=== PATIENT | male | born 1940 | race Caucasian/White ===

== ENCOUNTER → 2017-01-24 | Outpatient (CLI) | payer OTHER ==
[2017-01-24 15:20] LABS: HEMATOCRIT 43.3 % (42-52); MEAN CELL VOLUME 87.5 fL (80-100); MEAN CORPUSCULAR HEMOGLOBIN 27.7 pg (25-34); MEAN CORPUSCULAR HGB CONC 31.6 g/dl (32-36); MEAN PLATELET VOLUME 11.4 fL (7.4-10.4); PLATELET COUNT 207 K/uL (130-400); RED BLOOD COUNT 4.95 M/uL (4.7-6.1); WHITE BLOOD COUNT 4.67 K/uL (4.8-10.8)
[2017-01-24 15:22] LABS: URINE APPEARANCE CLEAR (CLEAR); URINE BILIRUBIN NEG (NEG); URINE COLOR YELLOW; URINE NITRITE NEG (NEG); URINE SPECIFIC GRAVITY 1.023 (1.000-1.030); UROBILINOGEN NEG (NEG)
[2017-01-24 15:27] LABS: MANUAL MICROSCOPIC REQUIRED? NO; REVIEW REQ? NO
[2017-01-24 15:36] LABS: URINE PROTIEN/CREAT RATIO 0.1 (0-0.2); URINE TOTAL PROTEIN 9.9 mg/dl (0-11.9)
[2017-01-24 15:42] LABS: ALT/SGPT 27 U/L (12-78); BLOOD UREA NITROGEN 57 mg/dl (7-18); BUN/CREATININE RATIO 22.9 (10-20); CALCIUM 9.7 mg/dl (8.5-10.1); CARBON DIOXIDE 25 mmol/L (21-32); CHLORIDE 109 mmol/L (98-107); GLUCOSE 110 mg/dl (70-99); POTASSIUM 4.4 mmol/L (3.5-5.1); SODIUM 141 mmol/L (136-145)
[2017-01-24 15:45] LABS: ALKALINE PHOSPHATASE 57 U/L (45-117); AST/SGOT 17 U/L (15-37)
== END | disposition home or self-care (01) ==
LOC: C.LAB1850 12:32
PROVIDERS: ATTEND Internal Medicine Nephrology
DX: I10 Essential (primary) hypertension (principal); R80.9 Proteinuria, unspecified; E11.9 Type 2 diabetes mellitus without complications; E55.9 Vitamin D deficiency, unspecified; N18.3 Chronic kidney disease, stage 3 (moderate)

== ENCOUNTER → 2017-07-29 | Outpatient (CLI) | payer OTHER ==
[2017-07-29 14:42] LABS: HEMATOCRIT 41.7 % (42-52); HEMOGLOBIN 13.5 g/dL (14.0-18.0); MEAN CELL VOLUME 90.7 fL (80-100); MEAN CORPUSCULAR HEMOGLOBIN 29.3 pg (25-34); MEAN CORPUSCULAR HGB CONC 32.4 g/dl (32-36); MEAN PLATELET VOLUME 11.3 fL (7.4-10.4); PLATELET COUNT 212 K/uL (130-400); RED CELL DISTRIBUTION WIDTH CV 14.3 % (11.5-14.5); WHITE BLOOD COUNT 5.86 K/uL (4.8-10.8)
[2017-07-29 14:51] LABS: ALBUMIN 3.7 gm/dl (3.4-5.0); BLOOD UREA NITROGEN 45 mg/dl (7-18); CALCIUM 9.5 mg/dl (8.5-10.1); CARBON DIOXIDE 25 mmol/L (21-32); CREATININE 2.49 mg/dl (0.60-1.40); GLUCOSE 74 mg/dl (70-99); POTASSIUM 4.5 mmol/L (3.5-5.1); SODIUM 141 mmol/L (136-145)
[2017-07-29 14:52] LABS: PHOSPHORUS 3.2 mg/dl (2.5-4.9)
== END | disposition home or self-care (01) ==
LOC: C.LAB1850 12:57
PROVIDERS: ATTEND Internal Medicine Nephrology
DX: Q61.2 Polycystic kidney, adult type (principal); I10 Essential (primary) hypertension; N18.3 Chronic kidney disease, stage 3 (moderate); R31.29 Other microscopic hematuria; R80.9 Proteinuria, unspecified; E55.9 Vitamin D deficiency, unspecified

== ENCOUNTER → 2018-02-01 | Outpatient (CLI) | payer OTHER ==
[2018-02-01 14:51] LABS: HEMATOCRIT 41.6 % (42-52); HEMOGLOBIN 13.4 g/dL (14.0-18.0); MEAN CELL VOLUME 89.1 fL (80-100); MEAN CORPUSCULAR HEMOGLOBIN 28.7 pg (25-34); MEAN CORPUSCULAR HGB CONC 32.2 g/dl (32-36); MEAN PLATELET VOLUME 11.3 fL (7.4-10.4); PLATELET COUNT 202 K/uL (130-400); RED CELL DISTRIBUTION WIDTH CV 14.6 % (11.5-14.5); RED CELL DISTRIBUTION WIDTH SD 47.1 fL (36.4-46.3); WHITE BLOOD COUNT 4.62 K/uL (4.8-10.8)
[2018-02-01 15:39] LABS: ALBUMIN 3.7 gm/dl (3.4-5.0); ALKALINE PHOSPHATASE 60 U/L (45-117); ALT/SGPT 20 U/L (12-78); AST/SGOT 11 U/L (15-37); BLOOD UREA NITROGEN 53 mg/dl (7-18); CALCIUM 8.8 mg/dl (8.5-10.1); CARBON DIOXIDE 23 mmol/L (21-32); GLUCOSE 113 mg/dl (70-99); POTASSIUM 4.4 mmol/L (3.5-5.1); SODIUM 139 mmol/L (136-145); TOTAL PROTEIN 7.5 gm/dl (6.4-8.2)
== END | disposition home or self-care (01) ==
LOC: C.LAB1850 13:10
PROVIDERS: ATTEND Internal Medicine Nephrology
DX: E55.9 Vitamin D deficiency, unspecified (principal)

== ENCOUNTER 2023-09-29 14:19 | Inpatient (IN) ==
[2023-09-29 15:38] LABS: Basophils # (auto) 0.02 K/uL (0.00-0.20); Basophils % (auto) 0.2 %; Eosinophils # (auto) 0.01 K/uL (0.00-0.50); Eosinophils % (auto) 0.1 %; Hematocrit (blood only) 34.2 % (42.0-52.0); Hemoglobin 11.2 g/dl (14.0-18.0); Immature Granulocytes # (auto) 0.15 K/uL (0.01-0.20); Immature Granulocytes % (auto) 1.7 %; Lymphocytes # (auto) 0.43 K/uL (1.20-3.40); Lymphocytes % (auto) 4.9 %; Mean Corpuscular Hemoglobin 28.6 pg (25.0-34.0); Mean Corpuscular Hgb Conc 32.7 g/dL (32.0-36.0); Mean Corpuscular Volume 87.2 fL (80.0-100.0); Mean Platelet Volume 11.6 fL (9.4-12.4); Monocytes # (auto) 0.64 K/uL (0.11-0.59); Monocytes % (auto) 7.3 %; Neutrophils # (auto) 7.51 K/uL (1.40-6.50); Neutrophils % (auto) 85.8 %; Platelet Count 148 K/uL (130-400); RDW Coefficient of Variation 14.4 % (11.5-14.5); RDW Standard Deviation 46.4 fL (36.4-46.3); Red Blood Count 3.92 M/uL (4.70-6.10); White Blood Count 8.76 K/ul (4.8-10.8)
--- NOTE | 2023-09-29 15:43 | XRay Report ---
XR chest 1V not portable CLINICAL HISTORY: Sepsis TECHNIQUE: Single frontal radiograph of the chest was obtained. Comparison: None available at the time of this dictation. FINDINGS: No lines and tubes are seen. Cardiomegaly is noted. The aortic arch is calcified. Prominence and ceph alization of the vasculature is seen. No evidence of pleural effusion or pneumothorax. IMPRESSION: No acute chest disease. ACT 112: Negative or not required by law. Electronically signed by: Steven Acuna M.D. 09/29/2023 3:42 PM
[2023-09-29 15:59] LABS: Albumin Globulin Ratio 1.1 (0.9-2); Albumin Level 3.6 gm/dl (3.4-5.0); BUN Creatinine Ratio 15.5 (10-20); Bilirubin,Total 1.4 mg/dl (0.2-1.0); Calcium 8.9 mg/dl (8.6-10.3); Creatinine Clr Calc Pharmacy 17.1 ml/min; Est GFR (African American) 12.3 ml/min; Est GFR (Non-African American) 10.6 ml/min; Globulin 3.4 gm/dl (2.5-4.0); Magnesium 1.8 mg/dl (1.7-2.4); Potassium 4.3 mmol/L (3.5-5.1)
[2023-09-29 16:01] LABS: Troponin I High Sensitivity 232.5 pg/ml (0-20)
[2023-09-29 16:06] LABS: INR 1.3 (0.9-1.1); Partial Thromboplastin Ratio 1.2; Partial Thromboplastin Time 34 Seconds (21-31); Prothrombin Time 13.6 Seconds (9.0-12.0)
--- NOTE | 2023-09-29 16:23 | Emergency Department Note ---
History of Present Illness General Chief complaint: Urinary Symptoms Stated complaint: NO SLEEP, FREQUENT URINATION Time Seen by Provider: 09/29/23 15:58 History of Present Illness Provider Complaint: + dysuria Onset (ago): day(s) 2 Duration: + constant Quality: + burning Relieved By: + none Exacerbated By: + urination Associated symptoms: + fever/chills, + shortness of breath and + weakness Other Symptoms: no urinary retention or no blood in urine Home Medications Medication Instructions Recorded Confirmed Type amlodipine 10 mg tablet 10 mg PO DAILY 01/24/19 09/29/23 History aspirin 81 mg tablet 81 mg PO DAILY 01/24/19 09/29/23 History coenzyme Q10 100 mg capsule (Co 100 mg PO DAILY 01/24/19 09/29/23 History Q-10) ezetimibe 10 mg tablet 10 mg PO DAILY 01/24/19 09/29/23 History fenofibrate micronized 134 mg 134 mg PO DAILY 01/24/19 09/29/23 History capsule multivitamin (Daily Multi-Vitamin 1 tab PO DAILY 01/24/19 09/29/23 History tablet) pravastatin 20 mg tablet 20 mg PO DAILY 01/24/19 09/29/23 History terazosin 10 mg capsule 10 mg PO DAILY 01/24/19 09/29/23 History apixaban 2.5 mg tablet (Eliquis) 2.5 mg PO BID #60 tabs 01/29/19 09/29/23 Rx metoprolol tartrate 25 mg tablet 25 mg PO DAILY #30 tabs 12/25/19 09/29/23 Rx lisinopril 40 mg tablet 40 mg PO DAILY 07/06/22 09/29/23 History ergocalciferol (vitamin D2) 1,250 50,000 unit PO .COMPLEX #20 caps 09/20/22 09/29/23 Rx mcg (50,000 unit) capsule allopurinol 100 mg tablet 100 mg PO Q4D 06/07/23 09/29/23 History furosemide 40 mg tablet 40 mg PO DAILY #90 tabs 07/19/23 09/29/23 Rx colchicine 0.6 mg tablet 0.6 mg PO BID 09/27/23 09/29/23 History Allergies Allergy/AdvReac Type Severity Reaction Status Date / Time adhesive tape Allergy Unknown Verified 09/27/23 14:51 levofloxacin [From Levaquin] Allergy Unknown Rash Verified 09/27/23 14:51 Penicillins Allergy Unknown Verified 09/27/23 14:51 Past Med/Surg History Medical History (Updated 09/29/23 @ 17:01 by Willy Richard MD) Microscopic hematuria Diabetes mellitus, type II Gout Hypertension KARISSA (obstructive sleep apnea) Polycystic kidney disease, autosomal dominant CKD (chronic kidney disease) stage 4, GFR 15-29 ml/min Surgical History H/O umbilical hernia repair Family History Denies family history of Sudden Cerebral aneurysm Heart disease Congenital kidney disease Stroke Cystic kidney disease Social History Smoking Status: Former smoker Preferred Language: Hebrew Current Living Situation: Spouse Feels Safe at Home: Yes Physical Exam 2 Vital Signs: Vital Signs - 24 hr 09/29/23 14:31 09/29/23 16:12 09/29/23 16:33 Temperature 36.8 C Temperature Source Oral Pulse Rate 88 98 H Pulse Rhythm Regular Pulse Strength Normal Respiratory Rate 22 Respiratory Effort / Characteristics Non-Labored Sponta neous Respiratory Depth Normal Respiratory Patter n Regular Blood Pressure 135/77 Blood Pressure Ale n 96 Blood Pressure Pos ition Sitting Pulse Oximetry 96 92 Oxygen Delivery Me thod Room Air Room Air Sepsis Recent Feve r Within 48 Hours No Sepsis New/Unexpla ined Change in Men keke Status N/A Sepsis Action Take n by Nursing No Action Required Physical Exam: Physical Exam GENERAL: oriented to person, place, and time. appears well-developed and well- nourished. HENT: Exam performed. - Head: Normocephalic and atraumatic. EYES: Conjunctivae and EOM are normal. Right eye exhibits no discharge. Left eye exhibits no discharge. No scleral icterus. NECK: Normal range of motion. Neck supple. No JVD present. CV: Normal rate, regular rhythm, normal heart sounds and intact distal pulses. There is no peripheral edema. Palpable radial pulses bue. PULM/CHEST: Effort normal and breath sounds normal. No respiratory distress. No stridor. no wheezes. no rales. ABD: The abdomen is soft. There is no tenderness. No CVA tenderness bilaterally. NEURO: Motor and sensation grossly intact. SKIN: Skin is warm and dry. He is not diaphoretic. PSYCH: normal mood and affect. Behavior is normal. Judgment and thought content normal. Course Course 1557: The patient was evaluated in room B4. A complete history and physical exam was performed Administered Medications Discontinued Medications Ceftriaxone Sodium (Rocephin) 2,000 mg in 50 mls @ 100 mls/hr IV NOW STA Stop: 09/29/23 16:51 Last Admin: 09/29/23 16:47 Dose: 100 mls/hr Documented By: MICHAEL Medical Decision Making Laboratory Data Attestation: I reviewed the patient's lab results. 09/29/23 15:03 09/29/23 15:03 Lab Results 09/29/23 Range/Units 15:03 WBC 8.76 (4.8-10.8) K/ul RBC 3.92 L (4.70-6.10) M/uL Hgb 11.2 L (14.0-18.0) g/dl Hct 34.2 L (42.0-52.0) % MCV 87.2 (80.0-100.0) fL MCH 28.6 (25.0-34.0) pg MCHC 32.7 (32.0-36.0) g/dL RDW Std Deviation 46.4 H (36.4-46.3) fL RDW Coeff of Ruth 14.4 (11.5-14.5) % Plt Count 148 (130-400) K/uL MPV 11.6 (9.4-12.4) fL Immature Gran % (Auto) 1.7 % Neut % (Auto) 85.8 % Lymph % (Auto) 4.9 % [place] % (Auto) 7.3 % Eos % (Auto) 0.1 % Baso % (Auto) 0.2 % Neut # (Auto) 7.51 H (1.40-6.50) K/uL Lymph # (Auto) 0.43 L (1.20-3.40) K/uL [place] # (Auto) 0.64 H (0.11-0.59) K/uL Eos # (Auto) 0.01 (0.00-0.50) K/uL Baso # (Auto) 0.02 (0.00-0.20) K/uL Immature Gran # (Auto) 0.15 (0.01-0.20) K/uL PT 13.6 H (9.0-12.0) Seconds INR 1.3 H (0.9-1.1) APTT 34 H (21-31) Seconds PTT Ratio 1.2 Sodium 137 (136-145) mmol/L Potassium 4.3 (3.5-5.1) mmol/L Chloride 105 (98-107) mmol/L Carbon Dioxide 21 (21-32) mmol/L Anion Gap 11 (3-11) BUN 74 H (6-23) mg/dl Creatinine 4.77 H* (0.6-1.4) mg/dl Est Cr Clr Drug Dosing 17.1 ml/min Est GFR ( Amer) 12.3 ml/min Est GFR (Non-Af Amer) 10.6 ml/min BUN/Creatinine Ratio 15.5 (10-20) Glucose 133 H (70-99(Fasting)) mg/dl Lactate 1.3 (0.4-2.0) mmol/L Calcium 8.9 (8.6-10.3) mg/dl Magnesium 1.8 (1.7-2.4) mg/dl Total Bilirubin 1.4 H (0.2-1.0) mg/dl AST 47 H (13-39) U/L ALT 32 (7-52) U/L Alkaline Phosphatase 66 (34-104) U/L Troponin I High Sens 232.5 H* (0-20) pg/ml Total Protein 7.0 (6.0-8.3) gm/dl Albumin 3.6 (3.4-5.0) gm/dl Globulin 3.4 (2.5-4.0) gm/dl Albumin/Globulin Ratio 1.1 (0.9-2) Procalcitonin 51.20 H (0-0.5) ng/ml Imaging Data Attestation: I personally reviewed and interpreted this imaging study as follows: My Impression: Chest x-ray: Mild cardiomegaly with mild cephalization Radiologist's Impression: Chest X-Ray 09/29/23 14:39 XR chest 1V not portable CLINICAL HISTORY: Sepsis TECHNIQUE: Single frontal radiograph of the chest was obtained. Comparison: None available at the time of this dictation. FINDINGS: No lines and tubes are seen. Cardiomegaly is noted. The aortic arch is calcified. Prominence and cephalization of the vasculature is seen. No evidence of pleural effusion or pneumothorax. IMPRESSION: No acute chest disease. ACT 112: Negative or not required by law. Electronically signed by: Steven Acuna M.D. 09/29/2023 3:42 PM ECG Data Attestation: I personally reviewed and interpreted this ECG as follows: Rate (beats per minute): 101 Rhythm: sinus with SA Findings: no ST depression, no ST elevation or no prolonged QT MDM Narrative Cardiac monitoring: An order was placed for continuous cardiac monitoring. The monitor shows a rate of 100 with sinus rhythm interpreted by me Patient was seen during a time of extreme volume and extreme acuity. Nursing triage protocols were initiated labs and imaging was conducted by protocol in the triage area. Labs show a creatinine of 4.77 up from July of 4.2. Patient's high- sensitivity troponin is elevated at 232.5. Patient's procalcitonin is 51.2. Nurse reported that the patient's urine was very dark and cloudy and that he was having pain with urination, presumed to be the source of the patient's infection/elevated procalcitonin. Patient states he has an allergy to Levaquin and states he had an allergy when he took regular penicillin many years ago. Patient be treated with Rocephin admitted to the [facility] hospitalist team. Dr. Richard states he will evaluate patient Impression & Plan Complicated UTI (urinary tract infection), CKD (chronic kidney disease) stage 4, GFR 15-29 ml/min, Polycystic kidney disease, autosomal dominant Discharge Plan Visit Data Chief Complaint: Urinary Symptoms Stated Complaint: NO SLEEP, FREQUENT URINATION ED Provider: Cuco Izquierdo Discharge Problem: Complicated UTI (urinary tract infection), CKD (chronic kidney disease) stage 4, GFR 15-29 ml/min, Polycystic kidney disease, autosomal dominant Patient Disposition: Being Evaluated by Hospitalist Forms Stand Alone Forms: My [facility] Prescriptions Prescriptions: No Action ergocalciferol (vitamin D2) 1,250 mcg (50,000 unit) capsule 50,000 unit PO .COMPLEX Qty: 20 2RF Rx Instructions: 50,000 units PO every other week; aspirin 81 mg tablet 81 mg PO DAILY multivitamin [Daily Multi-Vitamin] tablet 1 tab PO DAILY fenofibrate micronized 134 mg capsule 134 mg PO DAILY ezetimibe 10 mg tablet 10 mg PO DAILY amlodipine 10 mg tablet 10 mg PO DAILY terazosin 10 mg capsule 10 mg PO DAILY coenzyme Q10 [Co Q-10] 100 mg capsule 100 mg PO DAILY pravastatin 20 mg tablet 20 mg PO DAILY Eliquis 2.5 mg tablet 2.5 mg PO BID Qty: 60 2RF lisinopril 40 mg tablet 40 mg PO DAILY metoprolol tartrate 25 mg tablet 25 mg PO DAILY Qty: 30 2RF furosemide 40 mg tablet 40 mg PO DAILY Qty: 90 3RF allopurinol 100 mg tablet 100 mg PO Q4D colchicine 0.6 mg tablet 0.6 mg PO BID Referrals Referrals: Franck Dillon DO [Primary Care Provider] -
--- NOTE | 2023-09-29 16:34 | History & Physical Report ---
Date of Service September 29, 2023 Assessment & Plan (1) Complicated UTI (urinary tract infection): Plan: Complicated UTI Several days of urinary symptoms, procalcitonin 51.2 suggestive of gram- negative bacteremia Patient does not have a metabolic acidosis, elevated anion gap, leukocytosis, tachypnea, hypotension, or tachycardia on admission. Does not meet sepsis criteria Received Rocephin 2 g IV while in the ER Additional 1 L LR ordered BMP trended (2) CKD (chronic kidney disease) stage 4, GFR 15-29 ml/min: Plan: DARELL on CKD4 Baseline creatinine 3.33.8, recently has been as high as 4.2 Acutely elevated at 4.77 on admission No signs of volume overload or hyperkalemia on admission. Suspect prerenal, fluids ordered and Lasix held. If uptrending or patient becomes hyperkalemi c/limited with pulmonary edema then consult nephrology for additional management and potential hemodialysis this is not indicated at time of admission. Patient has no abdominal or flank pain, imaging deferred AVF placed August 2023 in the event hand patient progresses to dialysis. This is in place with good thrill; however is not mature enough to be used yet. Patient was switched to Lasix 40 mg daily approximately 1 month ago. Suspect prerenal and with concurrent UTI No history of nephrolithiasis, CT ordered to rule out obstruction/stone MRI abdomen 08/2023: Massively enlarged kidneys with innumerable simple and mildly complicated cysts consistent with polycystic disease. Layering blood products within hemorrhagic cysts. No suspicious lesions. Good follow-up with contrast-enhanced MRI for renal mass protocol to exclude subtle renal malignancy. (3) CAD (coronary artery disease): Plan: Troponin elevation - Endorses history of CAD, PCI in [place] more than 10 years ago -Denies history of heart failure reduced ejection fraction. Denies exertional chest pain/angina, has been more fatigued in the preceding week Records requested from [facility]. EKG: Sinus tachycardia, no territorial ST segment changes or T wave inversions. QTc 456. Troponin 232, trended Follow on telemetry (4) Polycystic kidney disease, autosomal dominant: Plan: as noted (5) KARISSA (obstructive sleep apnea): Plan: cpap qhs (6) Hypertension: Plan: Hypertension Lisinopril held for DARELL Metoprolol continued, amlodipine continued Plan Diet: Heart healthy Disposition: Medical telemetry CODE STATUS: DNR. Would not want remeasure/resuscitation in a cardiac arrest, is okay with intubation temporarily for declining respiratory status listed as conditional code for clarity and due to family concern DNR/DNI could be misinterpreted outside of code setting DVT prophylaxis: Anticoagulated History of Present Illness Primary Care Provider: Franck Dillon DO Michael is a 83-year-old male with past medical history of CKD, polycystic kidney disease, hypertension, vitamin D deficiency, and anemia without history of GI bleeding who resents to the ER with polyuria/nocturia, fever/chills, and weakness. Does not have leukocytosis, creatinine baseline of around 3.33.8, although more recently 4.2 is elevated at 4.77 on admission. Procalcitonin is 51. He is normotensive and is not tachycardic on admission. Chest x-ray does not show any acute abnormalities, no evidence of pneumonia and no evidence of pulmonary edema. He is recommended for admission for suspected complicated UTI Presents with 2 days of hematuria, chills, and weakness. UA foul-smelling and infected appearing. No prior history of resistant organisms on urine culture Reports since Tuesday multiple small voids, severe urgency No appetite, minimal PO intake since tuesday Endorses a morning cough, but no recent change or sputum production. Denies shortness of breath, daughters feel he is weaking and easily fatigued/sob last few days No chest pain, no chest pressure. No syncope/presyncope. Endorses a history of CAD w/ PCI with one stent done by [facility] Currently sees Dr. Jewell, Dr. Dillon, Dr. Oviedo dermatology, Dr. Raymond in [place] for cardiology. Med hx: CAD with hx of PCI, denies congestive heart failure. Distant history of kidney stones. HLD. HTN. Gout last flare after starting lasix. Takes colchicine intermittently. Is no longer on allopurinol. Med Review from phone: Aspirin 81mg daily Eliquis 2.5mg BID Metoprolol 25 daily Vitamin D 50K Amlodipine 10 Terazosin 10 Lasix 40 (started one month ago. Was previously on hctz which wasn't helping) Fenofibrate 134 Lisinopril 40 Ezetimibe 40 Pravastatin 80 COQ10 Medical History: Reviewed Medications: Reviewed Surgical History: Reviewed Family history: Reviewed Allergies: Reviewed Social History: No tobacco use in 50 years. No etoh use. Code Status: DNR. Patient would not want oscitation in the setting of an arrest /CODE BLUE, but would be okay with temporary intubation for declining respiratory status/fluid overload/etc. Will list as conditional code. Allergies Allergy/AdvReac Type Severity Reaction Status Date / Time adhesive tape Allergy Unknown Verified 09/27/23 14:51 levofloxacin [From Levaquin] Allergy Unknown Rash Verified 09/27/23 14:51 Penicillins Allergy Unknown Verified 09/27/23 14:51 Home Medications Medication Instructions Recorded Confirmed Type amlodipine 10 mg tablet 10 mg PO DAILY 01/24/19 09/29/23 History aspirin 81 mg tablet 81 mg PO DAILY 01/24/19 09/29/23 History coenzyme Q10 100 mg capsule (Co 100 mg PO DAILY 01/24/19 09/29/23 History Q-10) ezetimibe 10 mg tablet 10 mg PO DAILY 01/24/19 09/29/23 History fenofibrate micronized 134 mg 134 mg PO DAILY 01/24/19 09/29/23 History capsule multivitamin (Daily Multi-Vitamin 1 tab PO DAILY 01/24/19 09/29/23 History tablet) pravastatin 20 mg tablet 20 mg PO DAILY 01/24/19 09/29/23 History terazosin 10 mg capsule 10 mg PO DAILY 01/24/19 09/29/23 History apixaban 2.5 mg tablet (Eliquis) 2.5 mg PO BID #60 tabs 01/29/19 09/29/23 Rx metoprolol tartrate 25 mg tablet 25 mg PO DAILY #30 tabs 12/25/19 09/29/23 Rx lisinopril 40 mg tablet 40 mg PO DAILY 07/06/22 09/29/23 History ergocalciferol (vitamin D2) 1,250 50,000 unit PO .COMPLEX #20 caps 09/20/22 09/29/23 Rx mcg (50,000 unit) capsule allopurinol 100 mg tablet 100 mg PO Q4D 06/07/23 09/29/23 History furosemide 40 mg tablet 40 mg PO DAILY #90 tabs 07/19/23 09/29/23 Rx colchicine 0.6 mg tablet 0.6 mg PO BID 04/09/24 04/11/24 History Past Med/Surg History Medical History (Updated 09/29/23 @ 17:01 by Willy Richard MD) Microscopic hematuria Diabetes mellitus, type II Gout Hypertension KARISSA (obstructive sleep apnea) Polycystic kidney disease, autosomal dominant CKD (chronic kidney disease) stage 4, GFR 15-29 ml/min Surgical History H/O umbilical hernia repair Family History Denies family history of Sudden Cerebral aneurysm Heart disease Congenital kidney disease Stroke Cystic kidney disease Social History Smoking Status: Former smoker Preferred Language: Ugandan Current Living Situation: Spouse Feels Safe at Home: Yes Physical Exam Physical Exam: General: A&Ox3. NAD. Cooperative. HEENT: Atraumatic, normocephalic. Pulm: CTAB A&P. -wheezes, -rales, -rhonchi. Symmetrical chest rise. No increased work of breathing. No respiratory distress. Cardiac: RRR, -mrg. Radial pulses intact and symmetrical. Abdominal: Nontender, nondistended, soft. BS present. Ext: warm, dry. Mild soft tissue welling with no pitting edema in the lower extremities. R AV fistula with good thrill. Results & Data Results & Data Vital Signs (Past 12 Hours) Vital Signs Temp Pulse Resp BP Pulse Ox O2 Del Method 09/29/23 16:12 92 Room Air 09/29/23 14:31 36.8 C 88 22 135/77 96 Room Air PG Care Time/CCT Total # of Minutes Spent Total Time Spent with Patient: Total time spent is greater than 50% in coordination of care (as documented) at patient's floor/unit and/or counseling patient: Coding Level of Care Code 07742 INT INP/OBS CARE 3/75MIN Diagnoses Complicated UTI (urinary tract infection) N39.0 CKD (chronic kidney disease) stage 4, GFR 15-29 ml/min N18.4 CAD (coronary artery disease) I25.10 Polycystic kidney disease, autosomal dominant Q61.2 KARISSA (obstructive sleep apnea) G47.33 Hypertension I10
[2023-09-29] MEDS: cefTRIAXone SODIUM 2,000 MG/50 ML BAG IV STA (16:47)
[2023-09-29 16:54] LABS: Appearance Urine Turbid (Clear); Bacteria Urine Automated 4+ (None Seen); Bilirubin Urine Negative (Negative); Blood Urine 3+ (Negative); Color Urine Yellow; Epithelial Cell Urine Auto 0-2 /hpf (0-2); Glucose Urine UA Negative (Negative); Ketones Urine Negative (Negative); Leukocyte Esterase Urine 3+ (Negative); Nitrite Urine Negative (Negative); Protein Urine 2+ (Negative); RBC Urine Automated >20 /hpf (0-2); Specific Gravity Urine 1.011 (1.000-1.030); Urobilinogen Urine Negative (Negative); WBC Urine Automated >50 /hpf (0-5)
[2023-09-29 17:23] LABS: White Blood Cell Casts Urine Present /lpf (None Prsent)
[2023-09-29] MEDS: PLASMA-LYTE A 1,000 ML IV ONE (17:54)
[2023-09-29] MEDS: PLASMA-LYTE A 250 ML IV ONE (19:00)
[2023-09-29] MEDS ORDERED: ACETAMINOPHEN 325 MG TAB PO PRN (19:49)
[2023-09-29] MEDS: APIXABAN 2.5 MG TAB PO SCH (21:24)
[2023-09-29 21:43] LABS: BUN Creatinine Ratio 16.4 (10-20); Calcium 8.9 mg/dl (8.6-10.3); Creatinine Clr Calc Pharmacy 17.5 ml/min; Est GFR (African American) 12.8 ml/min; Potassium 4.2 mmol/L (3.5-5.1)
[2023-09-30 06:58] LABS: A calco-baum cmplx NotReported Not Detected (NotDetected); Bact fragilis Not Reported Not Detected (NotDetected); Blood Culture Id Panel See PCR Comment (NotDetected); C auris Not Reported Not Detected (NotDetected); CTX-M Resistant Gene Not Detected (NotDetected); Calbicans Not Reported Not Detected (NotDetected); Candida glabrata Not Reported Not Detected (NotDetected); Candida krusei Not Reported Not Detected (NotDetected); Cneoformans/gatti Not Reported Not Detected (NotDetected); Cparapsilosis Not Reported Not Detected (NotDetected); E cloacae compx Not Reported Not Detected (NotDetected); Efaecalis Not Reported Not Detected (NotDetected); Efaecium Not Reported Not Detected (NotDetected); Enterobacterales DETECTED (NotDetected); Enterobacterales Not Reported DETECTED (NotDetected); Escherichia coli Not Reported DETECTED (NotDetected); H influenzae Not Reported Not Detected (NotDetected); IMP Resistant Gene Not Detected (NotDetected); K aerogenes Not Reported Not Detected (NotDetected); KPC Resistant Gene Not Detected (NotDetected); Koxytoca Not Reported Not Detected (NotDetected); Kpneumoniae grp Not Reported Not Detected (NotDetected); Lmonocyt Not Reported Not Detected (NotDetected); N meningitidis Not Reported Not Detected (NotDetected); NDM Resistant Gene Not Detected (NotDetected); OXA 48 Like Resistant Gene Not Detected (NotDetected); P aeruginosa Not Reported Not Detected (NotDetected); Proteus spp Not Reported Not Detected (NotDetected); Salmonella spp Not Reported Not Detected (NotDetected); Smarcescens Not Reported Not Detected (NotDetected); Staph lugdunensis Not Reported Not Detected (NotDetected); Staph spp. Not Reported Not Detected (NotDetected); Staphaureus Not Reported Not Detected (NotDetected); Staphepi Not Reported Not Detected (NotDetected); Stenmaltophilia Not Reported Not Detected (NotDetected); Strep agal(GrpB) Not Reported Not Detected (NotDetected); Strep pneum Not Reported Not Detected (NotDetected); Strep pyog (GrpA) Not Reported Not Detected (NotDetected); Strep spp Not Reported Not Detected (NotDetected); VIM Resistant Gene Not Detected (NotDetected); mcr-1 Colistin Resistant Gene Not Detected (NotDetected)
[2023-09-30 07:05] LABS: Basophils # (auto) 0.01 K/uL (0.00-0.20); Basophils % (auto) 0.1 %; Eosinophils # (auto) 0.01 K/uL (0.00-0.50); Eosinophils % (auto) 0.1 %; Hematocrit (blood only) 32.7 % (42.0-52.0); Hemoglobin 10.3 g/dl (14.0-18.0); Immature Granulocytes # (auto) 0.03 K/uL (0.01-0.20); Immature Granulocytes % (auto) 0.4 %; Lymphocytes # (auto) 0.42 K/uL (1.20-3.40); Mean Corpuscular Hemoglobin 27.8 pg (25.0-34.0); Mean Corpuscular Hgb Conc 31.5 g/dL (32.0-36.0); Mean Corpuscular Volume 88.1 fL (80.0-100.0); Mean Platelet Volume 11.6 fL (9.4-12.4); Monocytes # (auto) 0.85 K/uL (0.11-0.59); Monocytes % (auto) 12.2 %; Neutrophils # (auto) 5.64 K/uL (1.40-6.50); Neutrophils % (auto) 81.2 %; Platelet Count 130 K/uL (130-400); RDW Coefficient of Variation 14.3 % (11.5-14.5); RDW Standard Deviation 46.2 fL (36.4-46.3); Red Blood Count 3.71 M/uL (4.70-6.10); White Blood Count 6.96 K/ul (4.8-10.8)
[2023-09-30] MEDS: EZETIMIBE 10 MG TAB PO SCH (08:00)
[2023-09-30] MEDS: PRAVASTATIN SOD 20 MG TAB PO SCH (08:01)
[2023-09-30] MEDS: MULTIVITAMIN TAB PO SCH (08:01)
[2023-09-30] MEDS: FENOFIBRATE NANOCRYSTALLIZED 145 MG TABLET PO SCH (08:01)
[2023-09-30] MEDS: METOPROLOL SUCC 25MG EXT REL TAB PO SCH (08:01)
[2023-09-30] MEDS: ASPIRIN 81 MG ECTAB PO SCH (08:01)
[2023-09-30] MEDS: TERAZOSIN HCL 5 MG CAP PO SCH (08:01)
[2023-09-30] MEDS: amLODIPine BESYLATE 5 MG TAB PO SCH (08:01)
[2023-09-30 08:09] LABS: Calcium 8.8 mg/dl (8.6-10.3)
[2023-09-30 08:15] LABS: BUN Creatinine Ratio 17.2 (10-20); Creatinine Clr Calc Pharmacy 18.1 ml/min; Est GFR (African American) 13.3 ml/min; Est GFR (Non-African American) 11.5 ml/min
[2023-09-30] MEDS: SODIUM CHLORIDE 0.9% 1,000 ML IV SCH (10:36)
--- NOTE | 2023-09-30 12:29 | CT Scan Report ---
ABDOMEN AND PELVIS CT WITHOUT CONTRAST CT DOSE: 1535.32 mGy.cm HISTORY: Acute sepsis with bacteremia h/o PCKD,sepsis,UTI,bacteremia,DARELL,r/o stone TECHNIQUE: Multiaxial CT images of the abdomen and pelvis were performed without contrast. A dose lo wering technique was utilized adhering to the principles of ALARA. COMPARISON STUDY: Renal ultrasound 03/18/2022 FINDINGS: Cardiomegaly with decreased attenuation of the cardiac blood pool suggestive of anemia. Cor onary arterial and cardiac valvular calcifications. Small pericardial and pleural effusions. Mild bib asilar opacities suggest atelectasis versus scarring. No free air. Subcentimeter hypodense splenic lesion is too small to characterize, however likely benign. Unremarka ble mildly atrophic pancreas. The adrenal glands are within normal limits. Contracted gallbladder wit h cholelithiasis. No biliary ductal dilation. Unremarkable liver. Autosomal dominant polycystic kidney disease with bilateral complex and simple renal cysts. Nonobstru cting calculi in the left kidney measure up to 1.7 cm. Calculi of the interpolar kidney measure up to 1.9 cm on image 173. Mild associated pelviectasis. There are a few calculi in the right kidney measu ring up to 9 mm. No definite ureteral calculi or tam hydronephrosis. Bladder wall thickening with p artial distention, wall thickening and perivesicular stranding. Prostatomegaly. Fat filled inguinal h ernias are noted, right greater than left. Atherosclerosis of the aorta. No lymphadenopathy. Trace as cites. Gaseous distention of the stomach. Mild nonspecific rectal wall thickening with partial distention. C olonic diverticulosis. Normal appendix. Unremarkable soft tissues. No acute fracture. IMPRESSION: 1. Prostamegaly with evidence of chronic bladder outlet obstruction. Findings should be correlated wi urinalysis to exclude superimposed cystitis. 2. Bilateral nephrolithiasis without ureteral calculi identified. 3. There is mild left-sided and caliectasis, possibly secondary to the large calculi within the inter polar distribution. 4. Cholelithiasis. 5. Autosomal dominant polycystic kidney disease. 6. Additional findings as above. ACT 112: Negative or not required by law. The above report was generated using voice recognition software. It may contain grammatical, syntax o r spelling errors. Electronically signed by: Ron Baxter M.D. 09/30/2023 12:27 PM
--- NOTE | 2023-09-30 16:04 | Cardiology Consultation ---
Date of Consultation September 30, 2023 Assessment & Plan (1) Paroxysmal atrial fibrillation: (2) CAD (coronary artery disease): (3) S/P coronary artery stent placement: (4) Hypertension: (5) Elevated troponin: Plan ASSESSMENT/PLAN: 1. Paroxysmal atrial fibrillation: Chronic issue. Asymptomatic. Heart rates elevated while in atrial fibrillation. Agree with titration of beta-ayde. We discussed treatment strategies at the bedside with patient and family. Based on his history, would expect that he will spontaneously convert to sinus rhythm. If he does not convert by tomorrow morning, or if he should develop symptoms or become unstable, would consider initiating intravenous amiodarone with the hopes of converting him to sinus rhythm. Certainly if he becomes unstable, could perform DC cardioversion. He has not missed any doses of Eliquis for at least 4 weeks per his report. Can use amiodarone in the short-term and hopefully once his infection improves, can discontinue and discharge home on beta-ayde. Continue anticoagulation for stroke risk reduction. 2. CAD s/p PCI: Details unknown. No angina. Continue aspirin 81 mg daily. Continue lipid management. Goal LDL < 70. High intensity statin therapy is indicated but given his current regimen, he may have been intolerant to such therapy in the past. As per his primary assistant professor of psychology. 3. Hypertension: Blood pressure elevated. Beta-ayde has been adjusted by primary hospitalist. Further adjustments can be made as appropriate. 4. Elevated troponin: He did not present with acute coronary syndrome. Elevated troponin likely due to demand ischemia in the setting of complicated UTI. Troponin was elevated before onset of atrial fibrillation. Ischemic evaluation not necessary at this time. 5. CKD: As per primary hospitalist. 6. Disposition: Please call on-call assistant professor of psychology with questions or concerns. Plan of care will be communicated with Dr. Roche who will be covering tomorrow. Patient care communicated with Dr. Sanford of the primary hospitalist service. Thank you for allowing me to participate in the care of your patient. Please call for any other questions or concerns. Sincerely, Marvin Kc M.D. History of Present Illness Reason for Consultation: Atrial fibrillation Requesting Physician: Kalyani Sanford MD Attending Physician: Kalyani Sanford MD History of Present Illness Mr. Marshall is a very pleasant 83-year-old gentleman with a history significant for advanced CKD, paroxysmal atrial fibrillation on Eliquis, CAD s/p PCI x 1 (unknown details), polycystic kidney disease, obstructive sleep apnea, hypertension, dyslipidemia, and anemia (no known GI bleeding). His primary assistant professor of psychology is Dr. Castro. He was admitted on 09/29/2023 with complicated UTI. He was in sinus rhythm upon presentation but developed atrial fibrillation with rapid ventricular response at 5:12 AM on 09/30/2023. He has a history of atrial fibrillation and has been asymptomatic. He was diagnosed with atrial fibrillation approximately 2 years a go on a home monitor. He had been on Eliquis 5 mg twice daily which was reduced to 2.5 mg twice daily a couple of months ago. His baseline creatinine has recently been 4.1 according to family. He is asymptomatic with current atrial fibrillation. His heart rate was elevated while in A-fib. At home he takes metoprolol 25 mg and it was increased to [address] Sanford. He denies melena, hematochezia, syncope, near syncope, palpitations, chest pain, or shortness of breath. Review of systems: As above. Review of systems otherwise negative/unremarkable. Family history: Noncontributory. Social history: Quit smoking at the age of 34. Denies alcohol or drug abuse. He lives at home alone near [place]. He has 4 children. He had several family members at the bedside including a son, [id number], grandson, and a granddaughter (Adilene who is graduating from nursing school in October 2023). Allergies Allergy/AdvReac Type Severity Reaction Status Date / Time adhesive tape Allergy Unknown Verified 09/27/23 14:51 levofloxacin [From Levaquin] Allergy Unknown Rash Verified 09/27/23 14:51 Penicillins Allergy Unknown Verified 09/27/23 14:51 Home Medications Medication Instructions Recorded Confirmed Type amlodipine 10 mg tablet 10 mg PO DAILY 01/24/19 09/29/23 History aspirin 81 mg tablet 81 mg PO DAILY 01/24/19 09/29/23 History coenzyme Q10 100 mg capsule (Co 100 mg PO DAILY 01/24/19 09/29/23 History Q-10) ezetimibe 10 mg tablet 10 mg PO DAILY 01/24/19 09/29/23 History fenofibrate micronized 134 mg 134 mg PO DAILY 01/24/19 09/29/23 History capsule multivitamin (Daily Multi-Vitamin 1 tab PO DAILY 01/24/19 09/29/23 History tablet) pravastatin 20 mg tablet 20 mg PO DAILY 01/24/19 09/29/23 History terazosin 10 mg capsule 10 mg PO DAILY 01/24/19 09/29/23 History apixaban 2.5 mg tablet (Eliquis) 2.5 mg PO BID #60 tabs 01/29/19 09/29/23 Rx metoprolol tartrate 25 mg tablet 25 mg PO DAILY #30 tabs 12/25/19 09/29/23 Rx lisinopril 40 mg tablet 40 mg PO DAILY 07/06/22 09/29/23 History ergocalciferol (vitamin D2) 1,250 50,000 unit PO .COMPLEX #20 caps 09/20/22 09/29/23 Rx mcg (50,000 unit) capsule allopurinol 100 mg tablet 100 mg PO Q4D 06/07/23 09/29/23 History furosemide 40 mg tablet 40 mg PO DAILY #90 tabs 07/19/23 09/29/23 Rx colchicine 0.6 mg tablet 0.6 mg PO BID 09/27/23 09/29/23 History Patient History Medical History CAD (coronary artery disease) Nephrolithiasis Paroxysmal atrial fibrillation Microscopic hematuria Diabetes mellitus, type II Gout Hypertension KARISSA (obstructive sleep apnea) Polycystic kidney disease, autosomal dominant CKD (chronic kidney disease) stage 4, GFR 15-29 ml/min Surgical History (Updated 09/30/23 @ 17:44 by Mehdi Kc MD) S/P coronary artery stent placement H/O umbilical hernia repair Family History Denies family history of Sudden Cerebral aneurysm Heart disease Congenital kidney disease Stroke Cystic kidney disease Social History Smoking Status: Former smoker Hx Alcohol Use: No Hx Substance Use: No Preferred Language: Tanzanian Communication Ability: Effective Resin Filterer Required: No Current Living Situation: Alone Feels Safe at Home: Yes Safety Concerns: Feels Safe At This Time Assistive Devices: Cane, Walker and Wheelchair Physical Exam Physical Exam: Gen.: No acute distress. Alert and oriented. HEENT: Anicteric sclera. Neck: No JVD. No bruits. Normal carotid upstrokes bilaterally. Cardiac: No ventricular heave. Irregularly irregular. Tachycardic. Normal S1-S2. No murmurs, rubs, or gallops. Pulmonary: Clear to auscultation bilaterally without wheezes, rales, or rhonchi. Abdomen: Soft, nontender, nondistended, with normoactive bowel sounds. No bruits noted. Extremities: 2+ radial pulses bilaterally. 2+ posterior tibialis pulses bilaterally. Trace bilateral lower extremity edema. No cyanosis. Psychiatric: Affect appears appropriate. Results & Data Vital Signs (Past 12 Hours) Vital Signs Temp Pulse Resp BP Pulse Ox O2 Del Method 09/30/23 15:35 36.8 C 115 H 16 178/117 H 94 Room Air 09/30/23 11:27 36.9 C 104 H 16 141/100 H 91 Room Air 09/30/23 08:20 Room Air 09/30/23 07:36 37.0 C 122 H 18 149/96 H 90 Room Air Intake & Output 09/28/23 09/29/23 09/30/23 10/01/23 06:59 06:59 06:59 06:59 Intake Total 1110 / 1110 1030 / 1030 Balance 1110 / 1110 1030 / 1030 Weight 288 lb 9.361 oz Laboratory Results Laboratory Results - last 24 hr 09/29/23 09/29/23 09/29/23 15:03 15:58 17:03 WBC RBC Hgb Hct MCV MCH MCHC RDW Std Deviation RDW Coeff of Ruth Plt Count MPV Immature Gran % (Auto) Neut % (Auto) Lymph % (Auto) [place] % (Auto) Eos % (Auto) Baso % (Auto) Neut # (Auto) Lymph # (Auto) [place] # (Auto) Eos # (Auto) Baso # (Auto) Immature Gran # (Auto) PT 13.6 H INR 1.3 H APTT 34 H PTT Ratio 1.2 Sodium Potassium Chloride Carbon Dioxide Anion Gap BUN Creatinine Est Cr Clr Drug Dosing Est GFR ( Amer) Est GFR (Non-Af Amer) BUN/Creatinine Ratio Glucose Calcium Troponin I High Sens 232.5 H* 209.6 H* Urine Color Yellow Urine Appearance Turbid A Urine pH 5.0 Ur Specific [place] 1.011 Urine Protein 2+ H Urine Glucose (UA) Negative Urine Ketones Negative Urine Blood 3+ H Urine Nitrite Negative Urine Bilirubin Negative Urine Urobilinogen Negative Ur Leukocyte Esterase 3+ H Urine WBC (Auto) >50 H Urine RBC (Auto) >20 H U Hyaline Cast (Auto) 3-5 H U Epithel Cells (Auto) 0-2 Urine Bacteria (Auto) 4+ H WBC Casts Present A Enterobacterales (PCR) DETECTED A E. coli (PCR) DETECTED A mcr-1 Colistin Res Gene PCR Not Detected blaIMP Car res Gene PCR Not Detected KPC-Carbap Res Gene PCR Not Detected blaNDM Car Res Gene PCR Not Detected OXA-48 Carbapenem Resis Gene (PCR) Not Detected blaVIM Car Res Gene PCR Not Detected CTX-M Gene Resistance (PCR) Not Detected Bld Cult ID Panel PCR See PCR Comment 09/29/23 09/30/23 20:59 06:28 WBC 6.96 RBC 3.71 L Hgb 10.3 L Hct 32.7 L MCV 88.1 MCH 27.8 MCHC 31.5 L RDW Std Deviation 46.2 RDW Coeff of Ruth 14.3 Plt Count 130 MPV 11.6 Immature Gran % (Auto) 0.4 Neut % (Auto) 81.2 Lymph % (Auto) 6.0 [place] % (Auto) 12.2 Eos % (Auto) 0.1 Baso % (Auto) 0.1 Neut # (Auto) 5.64 Lymph # (Auto) 0.42 L [place] # (Auto) 0.85 H Eos # (Auto) 0.01 Baso # (Auto) 0.01 Immature Gran # (Auto) 0.03 PT INR APTT PTT Ratio Sodium 137 138 Potassium 4.2 4.0 Chloride 104 106 Carbon Dioxide 19 L 19 L Anion Gap 14 H 13 H BUN 76 H 77 H Creatinine 4.63 H* 4.48 H Est Cr Clr Drug Dosing 17.5 18.1 Est GFR ( Amer) 12.8 13.3 Est GFR (Non-Af Amer) 11.0 11.5 BUN/Creatinine Ratio 16.4 17.2 Glucose 117 H 116 H Calcium 8.9 8.8 Troponin I High Sens Urine Color Urine Appearance Urine pH Ur Specific [place] Urine Protein Urine Glucose (UA) Urine Ketones Urine Blood Urine Nitrite Urine Bilirubin Urine Urobilinogen Ur Leukocyte Esterase Urine WBC (Auto) Urine RBC (Auto) U Hyaline Cast (Auto) U Epithel Cells (Auto) Urine Bacteria (Auto) WBC Casts Enterobacterales (PCR) E. coli (PCR) mcr-1 Colistin Res Gene PCR blaIMP Car res Gene PCR KPC-Carbap Res Gene PCR blaNDM Car Res Gene PCR OXA-48 Carbapenem Resis Gene (PCR) blaVIM Car Res Gene PCR CTX-M Gene Resistance (PCR) Bld Cult ID Panel PCR Diagnostic Findings ECHO 09/30/23: 1. Normal left ventricular size and systolic function. EF 60-65%. No regional wall motion abnormalities. Severe concentric left ventricular hypertrophy. 2. Severe left atrial dilation. 3. No significant valvular abnormalities. 4. Mild pulmonary hypertension. Estimated RVSP 40 mmHg. 5. No prior study available for comparison. Telemetry personally reviewed: Sinus rhythm until 5:12 AM on 09/30/2023 when A- fib with rapid ventricular response developed. Labs reviewed and notable for elevated high-sensitivity troponin, peaking at 232 when initially checked. Chronically abnormal renal function, mild anemia, normal potassium. ECG personally reviewed 09/29/2023 at 1452: Sinus tachycardia with PACs 101 bpm. History and physical report reviewed. Blood cultures 09/29/2023: 1 of 2 cultures positive for gram-negative bacilli. Urine culture 09/29/2023: Gram-negative bacilli. CT abdomen/pelvis 09/30/2023: Prostamegaly with evidence of chronic bladder outlet obstruction per radiology. Bilateral nephrolithiasis. Polycystic kidney disease per radiology. Chest x-ray 09/29/2023: No acute chest disease per radiology. Medications Administered Current Inpatient Medications Acetaminophen (Acetaminophen 325 Mg Tab) 650 mg PO Q4H PRN PRN Reason: Pain or Fever Stop: 10/29/23 19:48 Amlodipine Besylate (Amlodipine Besylate 5 Mg Tab) 10 mg PO DAILY [facility] Stop: 10/30/23 08:59 Last Admin: 09/30/23 08:01 Dose: 10 mg Apixaban (Apixaban 2.5 Mg Tab) 2.5 mg PO BID [facility] Stop: 10/29/23 20:59 Last Admin: 09/30/23 08:00 Dose: 2.5 mg Aspirin (Aspirin 81 Mg Ectab) 81 mg PO DAILY [facility] Stop: 10/30/23 08:59 Last Admin: 09/30/23 08:01 Dose: 81 mg Ezetimibe (Ezetimibe 10 Mg Tab) 10 mg PO DAILY [facility] Stop: 10/30/23 08:59 Last Admin: 09/30/23 08:00 Dose: 10 mg Fenofibrate (Fenofibrate Nanocrystallized 145 Mg Tablet) 145 mg PO DAILY [facility] Stop: 10/30/23 08:59 Last Admin: 09/30/23 08:01 Dose: 145 mg Ceftriaxone Sodium 2,000 mg/ (Dextrose) 50 mls @ 100 mls/hr IV Q24H ELVIS; Protocol Stop: 10/10/23 16:59 Sodium Chloride (Nss) 1,000 mls @ 100 mls/hr IV .Q10H [facility] Stop: 09/30/23 20:14 Last Admin: 09/30/23 10:36 Dose: 100 mls/hr Metoprolol Succinate (Metoprolol Succ 50mg Ext Rel Tab) 50 mg PO DAILY [facility] Stop: 10/31/23 08:59 Metoprolol Succinate (Metoprolol Succ 25mg Ext Rel Tab) 25 mg PO ONE ONE Stop: 09/30/23 15:55 Multivitamins (Multivitamin Tab) 1 tab PO QAM [facility] Stop: 10/30/23 08:59 Last Admin: 09/30/23 08:01 Dose: 1 tab Pravastatin Sodium (Pravastatin Sod 20 Mg Tab) 20 mg PO DAILY [facility] Stop: 10/30/23 08:59 Last Admin: 09/30/23 08:01 Dose: 20 mg Terazosin HCl (Terazosin Hcl 5 Mg Cap) 10 mg PO DAILY [facility] Stop: 10/30/23 08:59 Last Admin: 09/30/23 08:01 Dose: 10 mg PG Care Time/CCT Total # of Minutes Spent Total Time Spent with Patient: Total time spent is greater than 50% in coordination of care (as documented) at patient's floor/unit and/or counseling patient: Coding Level of Care Code 12631 INT INP/OBS CARE 3/75MIN Diagnoses Paroxysmal atrial fibrillation I48.0 CAD (coronary artery disease) I25.10 S/P coronary artery stent placement Z95.5 Hypertension I10 Elevated troponin R79.89
--- NOTE | 2023-09-30 16:04 | Electrocardiogram Report ---
Test Reason : Blood Pressure : / mmHG Vent. Rate : 101 BPM Atrial Rate : 101 BPM P-R Int : 172 ms QRS Dur : 100 ms QT Int : 352 ms P-R-T Axes : 087 -20 059 degrees QTc Int : 456 ms Sinus tachycardia with Premature atrial complexes Otherwise normal ECG No previous ECGs available Confirmed by Mehdi Kc ([id number]) on 09/30/2023 4:03:35 PM Referred By: Confirmed By:Mehdi Kc
--- NOTE | 2023-09-30 16:14 | XCELERA ---
[id number]
--- NOTE | 2023-09-30 16:39 | Hospitalist Progress Note ---
Date of Service September 30, 2023 Assessment & Plan (1) Sepsis: Plan: Presented with fever, tachycardia, tachypnea, and source of infection being UTI, now with septicemia with E. coli. Blood pressures have been hypertensive. Lactate normal. Procalcitonin significantly elevated at 51 Given ongoing tachycardia, needs further IV fluids-give 1 L of LR Continue with ceftriaxone which should work well for the E. coli based on the bio fire of the blood cultures Follow urine culture, blood cultures Follow CBC, CMP, procalcitonin in the morning Repeat blood cultures (2) Complicated UTI (urinary tract infection): Plan: Several days of urinary symptoms prior to admission. Most likely seeded through prostate from sedentary lifestyle With E. coli septicemia now as above With polycystic kidney disease and no abdominal pain but given sepsis, check CT abdomen/pelvis CT shows nephrolithiasis and large interpolar calculus with calyectasis on left but no hydronephrosis. PVR is acceptable Discussed with urology-no intervention needed Continue antibiotics and follow cultures (3) Paroxysmal atrial fibrillation: Plan: Went into rapid atrial fibrillation with rates as high as 150s in the morning of 09/29. He has a history of paroxysmal atrial fibrillation picked up on ambulatory heart monitor a few years ago and is on Eliquis and metoprolol, but he is asymptomatic Consult cardiology appreciated Increase metoprolol to 50 mg daily Continue to monitor on telemetry, if does not convert by tomorrow morning, start IV amiodarone or sooner if blood pressures become low or he is symptomatic Continue Eliquis Giving IV fluids for sepsis which should improve rate as well Keep electrolytes replete (4) CKD (chronic kidney disease) stage 4, GFR 15-29 ml/min: Plan: DARELL on CKD4, secondary to polycystic kidney disease Baseline creatinine 3.33.8, recently has been as high as 4.2 Acutely elevated at 4.77 on admission and now improved down to 4.4 Suspect prerenal, fluids ordered and Lasix held, giving more fluids today AVF placed August 2023 in the event hand patient progresses to dialysis. This is in place with good thrill; however is not mature enough to be used yet. MRI abdomen 08/2023: Massively enlarged kidneys with innumerable simple and mildly complicated cysts consistent with polycystic disease. Layering blood products within hemorrhagic cysts. No suspicious lesions. Good follow-up with contrast-enhanced MRI for renal mass protocol to exclude subtle renal malignancy. CT abdomen/pelvis here with cysts and stones in the kidneys, no hydronephrosis Follow BMP Renally dose medications (5) Nephrolithiasis: Plan: As noted above, follow-up with urology as an outpatient, no acute intervention needed (6) CAD (coronary artery disease): Plan: Troponin elevation at 232 and then down to 209 on repeat ECG without ischemic changes, no chest pain, likely myocardial demand ischemia secondary to sepsis CAD, PCI in [place] more than 10 years ago Denies history of heart failure reduced ejection fraction Records requested from [facility] the [facility]. Appreciate cardiology consultation Continue home apixaban, aspirin, fenofibrate, increasing metoprolol dose (7) Polycystic kidney disease, autosomal dominant: Plan: as noted (8) Hypertension: Plan: Blood pressures are elevated Lisinopril held for DARELL Metoprolol continued and increased dose, amlodipine continued (9) KARISSA (obstructive sleep apnea): Plan: cpap qhs Plan Diet: Heart healthy, add low sodium Disposition: Continued stay medical telemetry. Expect he will be here at least 2-3 more days given significant septicemia CODE STATUS: DNR. Would not want remeasure/resuscitation in a cardiac arrest, is okay with intubation temporarily for declining respiratory status listed as conditional code for clarity and due to family concern DNR/DNI could be misinterpreted outside of code setting DVT prophylaxis: Anticoagulated with Eliquis Admission and Anticipated Discharge Date Admission Date: September 29, 2023 Subjective Patient reports still not having an appetite at all and not feeling much better than yesterday. He went into rapid atrial fibrillation around 5:00 this morning with rates as high as the 150s to 160s but currently in the low 100s to 1 teens. He cannot tell when he is in atrial fibrillation but does have a history of such picked up on a cardiac event monitor. He cannot remember why he had the event monitor. He has been on Eliquis for a few years as well as metoprolol. I discussed his care with urology as well as cardiology. His bladder scan was minimal at 124 mL He denies any abdominal pains. He does report urinary urgency. Physical Exam Constitutional: WD/WN, vitals as above Respiratory: normal respiratory effort, lungs clear to auscultation Cardiovascular: Rate/Rhythm: + tachycardic and + irregularly irregular Heart Sounds: no murmur Extremities: + edema (Trace edema legs left greater than right) Gastrointestinal (Abdomen): normal bowel sounds, soft, nontender, no hepatosplenomegaly Skin: no rashes, warm and dry Results & Data Results & Data Vital Signs (Past 12 Hours) Vital Signs Temp Pulse Resp BP Pulse Ox O2 Del Method 09/30/23 15:35 36.8 C 115 H 16 178/117 H 94 Room Air 09/30/23 11:27 36.9 C 104 H 16 141/100 H 91 Room Air 09/30/23 08:20 Room Air 09/30/23 07:36 37.0 C 122 H 18 149/96 H 90 Room Air Laboratory Results CBC, BMP, troponin, urinalysis, urine culture, blood cultures reviewed PG Care Time/CCT Total # of Minutes Spent Total Time Spent with Patient: Total time spent is greater than 50% in coordination of care (as documented) at patient's floor/unit and/or counseling patient: Coding Level of Care Code 79628 SUB INP/OBS CARE 3/50MIN Diagnoses Sepsis A41.9 Complicated UTI (urinary tract infection) N39.0 Paroxysmal atrial fibrillation I48.0 CKD (chronic kidney disease) stage 4, GFR 15-29 ml/min N18.4 Nephrolithiasis N20.0 CAD (coronary artery disease) I25.10 Polycystic kidney disease, autosomal dominant Q61.2 Hypertension I10 KARISSA (obstructive sleep apnea) G47.33
[2023-09-30] MEDS: METOPROLOL SUCC 25MG EXT REL TAB PO ONE (16:57)
[2023-09-30] MEDS: cefTRIAXone SODIUM 2,000 MG in DEXTROSE 5 % MINI-B 50 ML IV SCH (16:57)
[2023-10-01 07:13] LABS: Basophils # (auto) 0.02 K/uL (0.00-0.20); Basophils % (auto) 0.3 %; Eosinophils # (auto) 0.06 K/uL (0.00-0.50); Eosinophils % (auto) 0.9 %; Hematocrit (blood only) 32.8 % (42.0-52.0); Hemoglobin 10.7 g/dl (14.0-18.0); Immature Granulocytes # (auto) 0.04 K/uL (0.01-0.20); Immature Granulocytes % (auto) 0.6 %; Lymphocytes # (auto) 0.54 K/uL (1.20-3.40); Lymphocytes % (auto) 7.7 %; Mean Corpuscular Hemoglobin 28.3 pg (25.0-34.0); Mean Corpuscular Hgb Conc 32.6 g/dL (32.0-36.0); Mean Corpuscular Volume 86.8 fL (80.0-100.0); Mean Platelet Volume 12.2 fL (9.4-12.4); Monocytes # (auto) 0.95 K/uL (0.11-0.59); Monocytes % (auto) 13.5 %; Neutrophils # (auto) 5.42 K/uL (1.40-6.50); Platelet Count 141 K/uL (130-400); RDW Coefficient of Variation 14.4 % (11.5-14.5); Red Blood Count 3.78 M/uL (4.70-6.10); White Blood Count 7.03 K/ul (4.8-10.8)
[2023-10-01 07:52] LABS: BUN Creatinine Ratio 17.7 (10-20); Bilirubin Direct 0.3 mg/dl (0-0.2); Bilirubin,Total 0.6 mg/dl (0.2-1.0); Calcium 8.7 mg/dl (8.6-10.3); Creatinine Clr Calc Pharmacy 17.8 ml/min; Est GFR (African American) 12.9 ml/min; Est GFR (Non-African American) 11.2 ml/min; Thyroid Stimulating Hormone 0.555 uIu/ml (0.300-4.500); Total Protein 6.1 gm/dl (6.0-8.3)
[2023-10-01] MEDS ORDERED: AMIODARONE IV BOLUS & DRIP IV STA (08:35)
[2023-10-01] MEDS ORDERED: STAT IV Infusion **Titration per Protocol STA (08:35)
[2023-10-01] MEDS ORDERED: 0.2 MICRON FILTER SET 1 EACH IV STA (08:35)
[2023-10-01] MEDS: METOPROLOL SUCC 50MG EXT REL TAB PO SCH (08:44)
[2023-10-01] MEDS: PLASMA-LYTE A 1,000 ML IV SCH (08:49)
[2023-10-01] MEDS: AMIODARONE / D5W 150 MG/100 ML BAG IV ONE (10:07)
[2023-10-01] MEDS: AMIODARONE / D5W 360 MG/200 ML BAG IV ONE (10:25)
[2023-10-01] MEDS: allopurinoL 100 MG TAB PO SCH (10:26)
--- NOTE | 2023-10-01 10:46 | Nephrology Consultation ---
Date of Consultation October 01, 2023 Assessment & Plan (1) DARELL (acute kidney injury): Non-oliguric. Electrolytes normal. Volume status acceptable. There is no emergent indication for FISH LIVER SORTER at this time. Potential future indications were discussed with Michael and his family this AM. DARELL attributed to sepsis and hemodynamic instability. Lisinopril has been held. IV is being provided to encourage slightly positive fluid balance. Document strict I/O's. Repeat metabolic profile tomorrow AM. (2) CKD (chronic kidney disease) stage 5, GFR less than 15 ml/min: Baseline creatinine 3.7-4.0 mg/dL. CKD attributed to PKD. AVF placed last month is not mature for use. Medications are appropriately dosed for kidney function. (3) Polycystic kidney disease, autosomal dominant: CT reviewed. (4) Sepsis: Clinically improving. Final cultures pending. Urine + E coli. 1/2 blood cultures from admission GNR. Remains on ceftriaxone. (5) Complicated UTI (urinary tract infection): Being treated with ceftriaxone. (6) Paroxysmal atrial fibrillation: Cardiology following. Rate controlled with metoprolol succinate. Amiodarone gtt infusing. History of Present Illness Reason for Consultation: DARELL on CKD stage V Requesting Physician: Kalyani Sanford MD Attending Physician: Kalyani Sanford MD History of Present Illness Mr. Michael Marshall is an 83 year-old male with CKD IV-V A1 attributed to polycystic kidney disease. Baseline creatinine has been 3.7-4.0 mg/dL. He follows with me in the [facility] nephrology clinic in [place]. He has complex renal anatomy with multiple cysts and multiple renal calcifications/stones. He has not had symptomatic enlargement of the kidneys. He has not had recurrent UTI. He does not have anemia of CKD or notable CKD/MBD. Formal predialysis education was completed through [facility] program. Dr. Littlejohn placed a RUE AVF last month which is maturing for use. Michael has expressed interest in in-centre HD or home therapy with PD if dialysis if needed. Thankfully, Michael does not endorse significant symptoms from his kidney dysfunction. He has maintained his volume status with furosemide 40 mg daily as well as a low sodium diet. Medical history is notable for HFpEF, paroxysmal atrial fibrillation, CAD, hypertension, DMII, KARISSA, morbid obesity, and hypercholesterolemia. Michael's therapy teacher is Dr. Castro. He denies concerning fluid retention or edema. He denies chest pains or palpitations. He is not experiencing significant dyspnea. He denies lightheadedness or dizziness. Michael presented to [facility] on September 28 with progressive weakness, fatigue, and urinary frequency. He was admitted with sepsis attributed to an E coli UTI. Resistance to ampicillin. Clinically improving with ceftriaxone. Sepsis was complicated by rapid atrial fibrillation. Metoprolol dose has been increased. Michael was started on IV amiodarone this morning. Cardiology is following. Michael was resting comfortably in bed with family at the bedside this AM. He feels reasonably well. IV Plasma-Lyte infusing. Serum creatinine was 4.77 mg/dL on admission. Creatinine 4.5 mg/dL this morning. Michael is non-oliguric. Electrolytes normal. Urine notable for 2+ protein, 3+ blood, 3+ LE, >50 WBC, 2-5 hyaline casts, WBC casts. CT of the abdomen did not demonstrate concerning features of obstruction. Bladder scan did not demonstrate significant PVR. Michael is afebrile. He is not experiencing any chills. He denies any urinary symptoms at this time. He denies flank or abdominal pain. Allergies Allergy/AdvReac Type Severity Reaction Status Date / Time adhesive tape Allergy Unknown Verified 09/27/23 14:51 levofloxacin [From Levaquin] Allergy Unknown Rash Verified 09/27/23 14:51 Penicillins Allergy Unknown Verified 09/27/23 14:51 Home Medications Medication Instructions Recorded Confirmed Type amlodipine 10 mg tablet 10 mg PO DAILY 01/24/19 09/29/23 History aspirin 81 mg tablet 81 mg PO DAILY 01/24/19 09/29/23 History coenzyme Q10 100 mg capsule (Co 100 mg PO DAILY 01/24/19 09/29/23 History Q-10) ezetimibe 10 mg tablet 10 mg PO DAILY 01/24/19 09/29/23 History fenofibrate micronized 134 mg 134 mg PO DAILY 01/24/19 09/29/23 History capsule multivitamin (Daily Multi-Vitamin 1 tab PO DAILY 01/24/19 09/29/23 History tablet) pravastatin 20 mg tablet 20 mg PO DAILY 01/24/19 09/29/23 History terazosin 10 mg capsule 10 mg PO DAILY 01/24/19 09/29/23 History apixaban 2.5 mg tablet (Eliquis) 2.5 mg PO BID #60 tabs 01/29/19 09/29/23 Rx metoprolol tartrate 25 mg tablet 25 mg PO DAILY #30 tabs 12/25/19 09/29/23 Rx lisinopril 40 mg tablet 40 mg PO DAILY 07/06/22 09/29/23 History ergocalciferol (vitamin D2) 1,250 50,000 unit PO .COMPLEX #20 caps 09/20/22 09/29/23 Rx mcg (50,000 unit) capsule allopurinol 100 mg tablet 100 mg PO Q4D 06/07/23 09/29/23 History furosemide 40 mg tablet 40 mg PO DAILY #90 tabs 07/19/23 09/29/23 Rx colchicine 0.6 mg tablet 0.6 mg PO BID 09/27/23 09/29/23 History Patient History Medical History CKD (chronic kidney disease) stage 5, GFR less than 15 ml/min CAD (coronary artery disease) Nephrolithiasis Paroxysmal atrial fibrillation Microscopic hematuria Diabetes mellitus, type II Gout Hypertension KRAISSA (obstructive sleep apnea) Polycystic kidney disease, autosomal dominant Surgical History S/P coronary artery stent placement H/O umbilical hernia repair Family History Denies family history of Sudden Cerebral aneurysm Heart disease Congenital kidney disease Stroke Cystic kidney disease Social History Smoking Status: Former smoker Hx Alcohol Use: No Hx Substance Use: No Preferred Language: Burmese Communication Ability: Effective Cytogenetics Technologist Required: No Current Living Situation: Alone Feels Safe at Home: Yes Safety Concerns: Feels Safe At This Time Assistive Devices: Cane, Walker and Wheelchair Review of Systems Review of Systems: All systems reviewed & are unremarkable except as noted in HPI & below Physical Exam Constitutional: well developed and + obese; no acute distress Eyes: + anicteric sclerae; no corneal abnormal ity ENMT: Mouth: no oral mucosal abnormality and oral mucous membranes not dry Neck: normal visual inspection and trachea midline Respiratory: normal respiratory effort Auscultation: lungs clear to auscultation bilaterally Cardiovascular: Rate/Rhythm: + irregularly irregular Heart Sounds: normal S1 and normal S2 Extremities: + edema and + AV fistula Musculoskeletal: Extremities: no cyanosis and no clubbing Skin: normal turgor; no lesions Neurologic: Motor/Sensory: no tremor and no asterixis Psychiatric: Orientation: alert and oriented x 3 Results & Data Vital Signs (Past 12 Hours) Vital Signs Temp Pulse Pulse Resp BP Pulse Ox O2 Del Method 10/01/23 08:20 36.7 C 111 H 19 148/87 H 94 Room Air 10/01/23 08:00 Room Air 10/01/23 03:27 37.2 C 107 H 18 139/82 92 BiPAP 09/30/23 23:17 37.3 C 87 18 139/83 95 Room Air, BiPAP 09/30/23 23:06 96 H Laboratory Results Laboratory Results - last 24 hr 10/01/23 06:23 WBC 7.03 RBC 3.78 L Hgb 10.7 L Hct 32.8 L MCV 86.8 MCH 28.3 MCHC 32.6 RDW Std Deviation 46.0 RDW Coeff of Ruth 14.4 Plt Count 141 MPV 12.2 Immature Gran % (Auto) 0.6 Neut % (Auto) 77.0 Lymph % (Auto) 7.7 [place] % (Auto) 13.5 Eos % (Auto) 0.9 Baso % (Auto) 0.3 Neut # (Auto) 5.42 Lymph # (Auto) 0.54 L Ciales # (Auto) 0.95 H Eos # (Auto) 0.06 Baso # (Auto) 0.02 Immature Gran # (Auto) 0.04 Sodium 136 Potassium 4.0 Chloride 105 Carbon Dioxide 21 Anion Gap 10 BUN 81 H Creatinine 4.58 H* Est Cr Clr Drug Dosing 17.8 Est GFR ( Amer) 12.9 Est GFR (Non-Af Amer) 11.2 BUN/Creatinine Ratio 17.7 Glucose 122 H Calcium 8.7 Magnesium 2.0 Total Bilirubin 0.6 D Direct Bilirubin 0.3 H AST 43 H ALT 38 Alkaline Phosphatase 93 Total Protein 6.1 Albumin 3.0 L Procalcitonin 27.10 H TSH 0.555 Diagnostic Findings ABDOMEN AND PELVIS CT WITHOUT CONTRAST COMPARISON STUDY: Renal ultrasound 03/18/2022 FINDINGS: Cardiomegaly with decreased attenuation of the cardiac blood pool suggestive of anemia. Coronary arterial and cardiac valvular calcifications. Small pericardial and pleural effusions. Mild bibasilar opacities suggest atelectasis versus scarring. No free air. Subcentimeter hypodense splenic lesion is too small to characterize, however likely benign. Unremarkable mildly atrophic pancreas. The adrenal glands are within normal limits. Contracted gallbladder with cholelithiasis. No biliary ductal dilation. Unremarkable liver. Autosomal dominant polycystic kidney disease with bilateral complex and simple renal cysts. Nonobstructing calculi in the left kidney measure up to 1.7 cm. Calculi of the interpolar kidney measure up to 1.9 cm on image 173. Mild associated pelviectasis. There are a few calculi in the right kidney measuring up to 9 mm. No definite ureteral calculi or tam hydronephrosis. Bladder wall thickening with partial distention, wall thickening and perivesicular stranding. Prostatomegaly. Fat filled inguinal hernias are noted, right greater than left. Atherosclerosis of the aorta. No lymphadenopathy. Trace ascites. Gaseous distention of the stomach. Mild nonspecific rectal wall thickening with partial distention. Colonic diverticulosis. Normal appendix. Unremarkable soft tissues. No acute fracture. IMPRESSION: 1. Prostamegaly with evidence of chronic bladder outlet obstruction. Findings should be correlated with urinalysis to exclude superimposed cystitis. 2. Bilateral nephrolithiasis without ureteral calculi identified. 3. There is mild left-sided and caliectasis, possibly secondary to the large calculi within the interpolar distribution. 4. Cholelithiasis. 5. Autosomal dominant polycystic kidney disease. XR chest 1V not portable Comparison: None available at the time of this dictation. FINDINGS: No lines and tubes are seen. Cardiomegaly is noted. The aortic arch is calcified. Prominence and cephalization of the vasculature is seen. No evidence of pleural effusion or pneumothorax. IMPRESSION: No acute chest disease. PG Care Time/CCT Total # of Minutes Spent Total Time Spent with Patient: Total time spent is greater than 50% in coordination of care (as documented) at patient's floor/unit and/or counseling patient: Coding Level of Care Code 86309 IN/OBS CONSULT LVL 4,60M Diagnoses DARELL (acute kidney injury) N17.9 CKD (chronic kidney disease) stage 5, GFR less than 15 ml/min N18.5 Polycystic kidney disease, autosomal dominant Q61.2 Sepsis A41.9 Complicated UTI (urinary tract infection) N39.0 Paroxysmal atrial fibrillation I48.0
--- NOTE | 2023-10-01 12:10 | Electrocardiogram Report ---
Test Reason : Blood Pressure : / mmHG Vent. Rate : 101 BPM Atrial Rate : 133 BPM P-R Int : 000 ms QRS Dur : 098 ms QT Int : 346 ms P-R-T Axes : 000 -11 079 degrees QTc Int : 448 ms Atrial fibrillation with rapid ventricular response with premature ventricular or aberrantly conducte d complexes Abnormal ECG When compared with ECG of 29-SEP-2023 14:52, Atrial fibrillation has replaced Sinus rhythm Confirmed by Lance Roche ([id number]) on 10/01/2023 12:10:18 PM Referred By: REFERRED SELF Confirmed By:Lance Roche
--- NOTE | 2023-10-01 14:40 | Hospitalist Progress Note ---
Date of Service October 01, 2023 Assessment & Plan (1) Sepsis: Plan: Presented with fever, tachycardia, tachypnea, and source of infection being UTI, now with septicemia with E. coli. Blood pressures have been hypertensive. Lactate normal. Procalcitonin significantly elevated at 51 and now trending downward to 27 With DARELL not much improved yet No further fevers, improving Was given total of 2.25L isotonic fluid in first 24 hrs here but now with some wheezing, cough, tachypnea--> may be fluid overloaded--> check CXR Ur cx E. coli res to Ampicillin, Intermed resis to Unasyn BCxs E. coli in 1/2 sets 09/28, no growth to stephen jude BCxs from 09/29 Continue ceftriaxone Follow repeat blood cultures Follow CBC, CMP in the morning (2) Complicated UTI (urinary tract infection): Plan: Several days of urinary symptoms prior to admission. Most likely seeded through prostate from sedentary lifestyle With E. coli septicemia With polycystic kidney disease and no abdominal pain but given sepsis, checked CT abdomen/pelvis--> shows nephrolithiasis but not obstructing and large interpolar calculus with calyectasis on left but no hydronephrosis. PVR is acceptable Discussed with urology-no intervention needed Continue antibiotics and follow cultures (3) Paroxysmal atrial fibrillation: Plan: Went into rapid atrial fibrillation with rates as high as 150s in the morning of 09/29. He has a history of paroxysmal atrial fibrillation picked up on ambulatory heart monitor a few years ago and is on Eliquis and metoprolol, but he is asymptomatic with it Consult cardiology appreciated-start amiodarone gtt as he still has not converted to NSR If converts, can dc amiodarone Increased metoprolol to 50 mg daily Continue to monitor on telemetry-transfer to PCU for amiodarone gtt Continue Eliquis Keep electrolytes replete (4) CKD (chronic kidney disease) stage 4, GFR 15-29 ml/min: Plan: DARELL on CKD4, secondary to polycystic kidney disease Baseline creatinine 3.33.8, recently has been as high as 4.2 Acutely elevated at 4.77 on admission and not much improved with IVFs to 4.5 Continue to hold Lasix Ordered further IVFs today but did not receive them and developed wheezing, cough, SOB--> HOLD further fluids and check CXR, may need IV lasix AVF placed August 2023 in the event hand patient progresses to dialysis. This is in place with good thrill; however is not mature enough to be used yet. MRI abdomen 08/2023: Massively enlarged kidneys with innumerable simple and mildly complicated cysts consistent with polycystic disease. Layering blood products within hemorrhagic cysts. No suspicious lesions. Good follow-up with contrast-enhanced MRI for renal mass protocol to exclude subtle renal malignancy. CT abdomen/pelvis here with cysts and stones in the kidneys, no hydronephrosis Follow BMP Renally dose medications Appreciate Nephrology consult (5) Nephrolithiasis: Plan: As noted above, follow-up with urology as an outpatient, no acute intervention needed (6) CAD (coronary artery disease): Plan: Troponin elevation at 232 and then down to 209 on repeat ECG without ischemic changes, no chest pain, likely myocardial demand ischemia secondary to sepsis CAD, PCI in [place] more than 10 years ago Denies history of heart failure reduced ejection fraction Records requested from [facility]. Appreciate cardiology consultation Continue home apixaban, aspirin, fenofibrate, increased metoprolol dose (7) Polycystic kidney disease, autosomal dominant: Plan: as noted (8) Hypertension: Plan: Blood pressures are elevated but improved since increasing metoprolol dose Lisinopril held for DARELL Metoprolol continued and increased dose, amlodipine continued (9) KARISSA (obstructive sleep apnea): Plan: continue cpap qhs Plan Diet: Heart healthy, low potassium Disposition: Continued stay and transferred to PCU CODE STATUS: DNR. Would not want remeasure/resuscitation in a cardiac arrest, is okay with intubation temporarily for declining respiratory status listed as conditional code for clarity and due to family concern DNR/DNI could be misinterpreted outside of code setting DVT prophylaxis: Anticoagulated with Eliquis I discussed his care with Nephrology Admission and Anticipated Discharge Date Admission Date: September 29, 2023 Subjective Feeling a little SOB, has a dry cough today. Feels a little better overall than yesterday. Is making urine but not as much as yesterday. Appetite has improved Tele with Afib, rates in 110s through the night, now in 80-90s on IV amiodarone Denies chest pain Physical Exam Constitutional: WD/WN, vitals as above Respiratory: + cough and + tachypneic (mild with mini mal movement) Auscultation: + wheezes (bilateral, faint); no rales and no rhonchi Cardiovascular: Rate/Rhythm: regular rate and + irregularly irregular Heart Sounds: no murmur Extremities: + edema (Trace edema legs left greater than right) Gastrointestinal (Abdomen): normal bowel sounds, soft, nontender, no hepatosplenomegaly Skin: no rashes, warm and dry Results & Data Results & Data Vital Signs (Past 12 Hours) Vital Signs Temp Pulse Resp BP Pulse Ox O2 Del Method 10/01/23 11:47 36.6 C 107 H 18 149/84 H 94 Room Air 10/01/23 08:20 36.7 C 111 H 19 148/87 H 94 Room Air 10/01/23 08:00 Room Air 10/01/23 03:27 37.2 C 107 H 18 139/82 92 BiPAP Laboratory Results CBC, CMP, TSH, procalcitonin, blood and urine cxs reviewed PG Care Time/CCT Total # of Minutes Spent Total Time Spent with Patient: Total time spent is greater than 50% in coordination of care (as documented) at patient's floor/unit and/or counseling patient: Coding Level of Care Code 43580 SUB INP/OBS CARE 3/50MIN Diagnoses Sepsis A41.9 Complicated UTI (urinary tract infection) N39.0 Paroxysmal atrial fibrillation I48.0 CKD (chronic kidney disease) stage 4, GFR 15-29 ml/min N18.4 Nephrolithiasis N20.0 CAD (coronary artery disease) I25.10 Polycystic kidney disease, autosomal dominant Q61.2 Hypertension I10 KARISSA (obstructive sleep apnea) G47.33
--- NOTE | 2023-10-01 15:04 | XRay Report ---
XR chest 1V portable HISTORY: 83 years-old Male wheezing,SOB acute wheezing with shortness of breath COMPARISON: 09/29/2023 TECHNIQUE: AP view of the chest FINDINGS: Cardiac silhouette is enlarged. Atherosclerosis of the aorta. Pulmonary vascular congestion. Eventrat ion of the right hemidiaphragm. No pneumothorax, large pleural effusion or lobar airspace consolidati on. Bones appear grossly intact. IMPRESSION: Cardiomegaly with pulmonary vascular congestion. ACT 112: Negative or not required by law. The above report was generated using voice recognition software. It may contain grammatical, syntax o r spelling errors. Electronically signed by: Ron Baxter M.D. 10/01/2023 3:02 PM
[2023-10-01] MEDS: AMIODARONE / D5W 360 MG/200 ML BAG IV SCH (16:05)
[2023-10-02 06:45] LABS: Basophils # (auto) 0.02 K/uL (0.00-0.20); Basophils % (auto) 0.3 %; Eosinophils # (auto) 0.19 K/uL (0.00-0.50); Eosinophils % (auto) 2.4 %; Hematocrit (blood only) 30.7 % (42.0-52.0); Hemoglobin 10.1 g/dl (14.0-18.0); Immature Granulocytes # (auto) 0.06 K/uL (0.01-0.20); Immature Granulocytes % (auto) 0.8 %; Lymphocytes # (auto) 0.71 K/uL (1.20-3.40); Mean Corpuscular Hemoglobin 28.3 pg (25.0-34.0); Mean Corpuscular Hgb Conc 32.9 g/dL (32.0-36.0); Monocytes # (auto) 0.81 K/uL (0.11-0.59); Monocytes % (auto) 10.2 %; Neutrophils # (auto) 6.12 K/uL (1.40-6.50); Neutrophils % (auto) 77.3 %; Platelet Count 149 K/uL (130-400); RDW Coefficient of Variation 14.5 % (11.5-14.5); RDW Standard Deviation 46.1 fL (36.4-46.3); Red Blood Count 3.57 M/uL (4.70-6.10); White Blood Count 7.91 K/ul (4.8-10.8)
[2023-10-02 07:17] LABS: BUN Creatinine Ratio 19.1 (10-20); Bilirubin,Total 0.4 mg/dl (0.2-1.0); Calcium 8.7 mg/dl (8.6-10.3); Creatinine Clr Calc Pharmacy 17.5 ml/min; Est GFR (African American) 12.7 ml/min; Est GFR (Non-African American) 10.9 ml/min; Globulin 3.1 gm/dl (2.5-4.0); Potassium 3.8 mmol/L (3.5-5.1); Total Protein 6.1 gm/dl (6.0-8.3)
[2023-10-02 07:25] LABS: Folate (Folic Acid),Ser orPlas > 22.30 ng/ml (>5.38)
[2023-10-02 07:26] LABS: Vitamin B12 329 pg/ml (180-914)
[2023-10-02 07:37] LABS: Ferritin 227.8 ng/ml (8-388)
--- NOTE | 2023-10-02 11:01 | Nephrology Progress Note ---
Date of Service October 02, 2023 Assessment & Plan (1) DARELL (acute kidney injury): Plan: Non-oliguric. Electrolytes normal. Creatinine relatively stable (4.580-->4.66 mg/dL). Hypervolemic. There is no emergent indication for ANGIOGRAPHY TECHNOLOGIST at this time. Furosemide 40 mg IV provided this AM. Document strict I/O's. Document AM weight. Repeat metabolic profile tomorrow AM. Goal is to maintain a slightly negative fluid balance. DARELL attributed to sepsis and hemodynamic instability. Lisinopril has been held. (2) CKD (chronic kidney disease) stage 5, GFR less than 15 ml/min: Plan: Baseline creatinine 3.7-4.0 mg/dL. CKD attributed to PKD. AVF placed 09/10 is not mature for use. Medications are appropriately dosed for kidney function. (3) Polycystic kidney disease, autosomal dominant: (4) Complicated UTI (urinary tract infection): Plan: Clinically improving. Final cultures pending. Urine + E coli. 1/2 blood cultures from admission GNR. Follow up blood cultures negative for growth at 24 hours. Remains on ceftriaxone. (5) Anemia: Plan: Hgb stable. PATEL therapy not indicated at this time. Iron deficiency noted. IV iron replacement deferred pending treatment of infection. (6) Paroxysmal atrial fibrillation: Plan: Rate controlled. Denies symptoms. Remains on amiodarone gtt. Cardiology following. Admission and Anticipated Discharge Date Admission Date: September 29, 2023 Subjective No acute events overnight. Michael feels reasonably well this morning. Afib with rates in the 90s on tele. Amio gtt infusing. Michael has been out of bed and walking in his hospital room. He denies chest pain or palpitations. He denies lightheadedness or dizziness. No fevers or chills. No concerning urinary symptoms. Voiding less frequently. Remains non-oliguric. I/O not documented. No dysuria. Michael reports a persistent dry cough. He also reports increased ort hopnea. Symptoms improved with BIPAP. Slept well. Appetite is good. Review of Systems Review of Systems: All systems reviewed & are unremarkable except as noted in HPI & below Physical Exam Constitutional: well developed and + obese; no acute distress Eyes: + anicteric sclerae; no corneal abnormal ity ENMT: Mouth: no oral mucosal abnormality and oral mucous membranes not dry Neck: normal visual inspection and trachea midline Respiratory: + cough and + tachypneic Auscultation : lungs clear to auscultation bilaterally and + wheezes (soft) Cardiovascular: Rate/Rhythm: + irregularly irregular Heart Sounds: normal S1 and normal S2 Extremities: + edema and + AV fistula Musculoskeletal: Extremities: no cyanosis and no clubbing Skin: normal turgor; no lesions Neurologic: Motor/Sensory: no tremor and no asterixis Psychiatric: Orientation: alert and oriented x 3 Results & Data Vital Signs (Past 12 Hours) Vital Signs Temp Pulse Resp BP Pulse Ox O2 Del Method 10/02/23 10:45 36.7 C 105 H 18 124/77 96 Room Air 10/02/23 07:05 36.8 C 18 143/89 H 95 Room Air 10/02/23 02:37 36.7 C 90 18 130/76 95 CPAP Laboratory Results Laboratory Results - last 24 hr 10/02/23 06:15 WBC 7.91 RBC 3.57 L Hgb 10.1 L Hct 30.7 L MCV 86.0 MCH 28.3 MCHC 32.9 RDW Std Deviation 46.1 RDW Coeff of Ruth 14.5 Plt Count 149 MPV 12.0 Immature Gran % (Auto) 0.8 Neut % (Auto) 77.3 Lymph % (Auto) 9.0 Bartholomew % (Auto) 10.2 Eos % (Auto) 2.4 Baso % (Auto) 0.3 Neut # (Auto) 6.12 Lymph # (Auto) 0.71 L Bartholomew # (Auto) 0.81 H Eos # (Auto) 0.19 Baso # (Auto) 0.02 Immature Gran # (Auto) 0.06 Sodium 134 L Potassium 3.8 Chloride 102 Carbon Dioxide 22 Anion Gap 10 BUN 89 H Creatinine 4.66 H* Est Cr Clr Drug Dosing 17.5 Est GFR ( Amer) 12.7 Est GFR (Non-Af Amer) 10.9 BUN/Creatinine Ratio 19.1 Glucose 114 H Calcium 8.7 Magnesium 2.0 Iron 16 L TIBC 252 Unsaturated IBC 236 Transferrin % Sat 6 L Ferritin 227.8 Total Bilirubin 0.4 AST 36 ALT 39 Alkaline Phosphatase 107 H Total Protein 6.1 Albumin 3.0 L Globulin 3.1 Albumin/Globulin Ratio 1.0 Vitamin B12 329 Folate > 22.30 Diagnostic Findings XR chest 1V portable COMPARISON: 09/29/2023 FINDINGS: Cardiac silhouette is enlarged. Atherosclerosis of the aorta. Pulmonary vascular congestion. Eventration of the right hemidiaphragm. No pneumothorax, large pleural effusion or lobar airspace consolidation. Bones appear grossly intact. IMPRESSION: Cardiomegaly with pulmonary vascular congestion. PG Care Time/CCT Total # of Minutes Spent Total Time Spent with Patient: Total time spent is greater than 50% in coordination of care (as documented) at patient's floor/unit and/or counseling patient: Coding Level of Care Code 38069 SUB INP/OBS CARE 3/50MIN Diagnoses DARELL (acute kidney injury) N17.9 CKD (chronic kidney disease) stage 5, GFR less than 15 ml/min N18.5 Polycystic kidney disease, autosomal dominant Q61.2 Complicated UTI (urinary tract infection) N39.0 Anemia D64.9 Paroxysmal atrial fibrillation I48.0
[2023-10-02] MEDS: FUROSEMIDE 40 MG/4 ML VIAL IV ONE (11:17)
--- NOTE | 2023-10-02 11:50 | Hospitalist Progress Note ---
Date of Service October 02, 2023 Assessment & Plan (1) Sepsis: Plan: Presented with fever, tachycardia, tachypnea, and source of infection being UTI, now with septicemia with E. coli. Blood pressures have been hypertensive. Lactate normal. Procalcitonin significantly elevated at 51 and trended downward to 27 With DARELL slightly worse No further fevers, tachycardia with Afib improving Was given total of 2.25L isotonic fluid in first 24 hrs here and now with some wheezing, cough, tachypnea but no hypoxia--> is mildly fluid overloaded with pulm vasc congestion on CXR--> IV lasix x 1 Ur cx E. coli res to Ampicillin, Intermed resis to Unasyn 09/28 BCxs E. coli in 1/2 sets, no growth to date on BCxs from 09/29 Continue ceftriaxone for now and eventually convert to po antibiotics for discharge to complete 10 day course-with unknown PCN allergy, Levaquin allergy, and renal failure, will d/w Pharmacy about best choice for bacteremia as I do not believe cefdinir po is preferred for bacteremia Follow repeat blood cultures Follow CBC, CMP in the morning (2) Complicated UTI (urinary tract infection): Plan: Several days of urinary symptoms prior to admission. Most likely seeded through prostate With E. coli septicemia With polycystic kidney disease and no abdominal pain but given sepsis, checked CT abdomen/pelvis--> shows nephrolithiasis but not obstructing and large interpolar calculus with calyectasis on left but no hydronephrosis. PVR is acceptable Discussed with urology-no intervention needed Continue antibiotics and follow cultures (3) Paroxysmal atrial fibrillation: Plan: Went into rapid atrial fibrillation with rates as high as 150s in the morning of 09/29. He has a history of paroxysmal atrial fibrillation picked up on ambulatory heart monitor a few years ago and is on Eliquis and metoprolol, but he is asymptomatic with it Consult cardiology appreciated-started amiodarone gtt as he still has not converted to NSR Rates better controlled in 80-100s If converts, can dc amiodarone Increased metoprolol to 50 mg daily Continue to monitor on telemetry Continue Eliquis Keep electrolytes replete (4) CKD (chronic kidney disease) stage 4, GFR 15-29 ml/min: Plan: DARELL on CKD4, secondary to polycystic kidney disease. AVF placed August 2023- not mature yet. Baseline creatinine 3.33.8, recently has been as high as 4.2 Acutely elevated at 4.77 on admission and not much improved with IVFs to 4.66 MRI abdomen 08/2023: Massively enlarged kidneys with innumerable simple and mildly complicated cysts consistent with polycystic disease. Layering blood products within hemorrhagic cysts. No suspicious lesions. Good follow-up with contrast-enhanced MRI for renal mass protocol to exclude subtle renal malignancy. CT abdomen/pelvis here with cysts and stones in the kidneys, no hydronephrosis With being volume overloaded, Nephrology giving IV Lasix x 1 on 10/01 Follow BMP Renally dose medications Appreciate Nephrology consult Holding home lisinopril, colchicine (5) Hypertension: Plan: Blood pressures are elevated but improved since increasing metoprolol dose Lisinopril held for DARELL Metoprolol continued and increased dose, amlodipine and terazosin continued (6) Anemia: Plan: Hgb mildly low and stable at 10.1, normocytic Fe studies show transferrin sat low at 6%, normal ferritin but could be elevated as acut ephase reactant B12, folate normal Needs iron but hold off in setting of bacteremia Follow CBC (7) CAD (coronary artery disease): Plan: Troponin elevation at 232 and then down to 209 on repeat ECG without ischemic changes, no chest pain, likely myocardial demand ischemia secondary to sepsis CAD, PCI in [place] more than 10 years ago Denies history of heart failure reduced ejection fraction Records requested from [facility]. Appreciate cardiology consultation Continue home apixaban, aspirin, fenofibrate, increased metoprolol dose (8) Polycystic kidney disease, autosomal dominant: Plan: as noted (9) Nephrolithiasis: Plan: As noted above, follow-up with urology as an outpatient, no acute intervention needed (10) KARISSA (obstructive sleep apnea): Plan: continue cpap qhs Plan Diet: Heart healthy, low potassium Disposition: Continued stay on PCU CODE STATUS: DNR. Would not want remeasure/resuscitation in a cardiac arrest, is okay with intubation temporarily for declining respiratory status listed as conditional code for clarity and due to family concern DNR/DNI could be misinterpreted outside of code setting DVT prophylaxis: Anticoagulated with Eliquis I discussed his care with son and grandson at bedside 10/01 Admission and Anticipated Discharge Date Admission Date: September 29, 2023 Subjective Pt still has a dry cough but overall feeling a little better. Appetite improving but still not great. had some loose stools. Urine output is not being measured as he was going int the toilet and can't use a urinal. Discussed importance of measuring output with pt and RN who placed a hat in toilet. Pt denies SOB, no abd pains. Tele with afib, rates 80-100s Physical Exam Constitutional: WD/WN, vitals as above + obese Respiratory: + cough Auscultation: + wheezes (bila teral, faint); no rales and no rhonchi Cardiovascular: Rate/Rhythm: regular rate and + irregularly irregular Heart Sounds: no murmur Extremities: + edema (Trace edema legs left greater than right) Gastrointestinal (Abdomen): normal bowel sounds, soft, nontender, no hepatosplenomegaly Skin: no rashes, warm and dry Psychiatric: A+Ox3, euthymic affect Results & Data Results & Data Vital Signs (Past 12 Hours) Vital Signs Temp Pulse Resp BP Pulse Ox O2 Del Method 10/02/23 10:45 36.7 C 105 H 18 124/77 96 Room Air 10/02/23 07:05 36.8 C 18 143/89 H 95 Room Air 10/02/23 02:37 36.7 C 90 18 130/76 95 CPAP Laboratory Results CBC, BMP, Fe studies, B12, folate, LFTs reviewed Blood cxs and Ur cx reviewed PG Care Time/CCT Total # of Minutes Spent Total Time Spent with Patient: Total time spent is greater than 50% in coordination of care (as documented) at patient's floor/unit and/or counseling patient: Coding Level of Care Code 39200 SUB INP/OBS CARE 3/50MIN Diagnoses Sepsis A41.9 Complicated UTI (urinary tract infection) N39.0 Paroxysmal atrial fibrillation I48.0 CKD (chronic kidney disease) stage 4, GFR 15-29 ml/min N18.4 Hypertension I10 Anemia D64.9 CAD (coronary artery disease) I25.10 Polycystic kidney disease, autosomal dominant Q61.2 Nephrolithiasis N20.0 KARISSA (obstructive sleep apnea) G47.33
[2023-10-03 07:22] LABS: Hematocrit (blood only) 31.7 % (42.0-52.0); Mean Corpuscular Hemoglobin 27.7 pg (25.0-34.0); Mean Corpuscular Hgb Conc 31.5 g/dL (32.0-36.0); Mean Corpuscular Volume 87.8 fL (80.0-100.0); Mean Platelet Volume 12.1 fL (9.4-12.4); Platelet Count 179 K/uL (130-400); RDW Coefficient of Variation 14.5 % (11.5-14.5); RDW Standard Deviation 46.5 fL (36.4-46.3); Red Blood Count 3.61 M/uL (4.70-6.10); White Blood Count 6.13 K/ul (4.8-10.8)
[2023-10-03 07:45] LABS: Calcium 8.7 mg/dl (8.6-10.3); Creatinine Clr Calc Pharmacy 15.8 ml/min; Est GFR (African American) 11.2 ml/min; Est GFR (Non-African American) 9.6 ml/min; Potassium 3.8 mmol/L (3.5-5.1)
[2023-10-03 08:24] LABS: Basophils # (auto) 0.03 K/uL (0.00-0.20); Basophils % (auto) 0.5 %; Eosinophils # (auto) 0.29 K/uL (0.00-0.50); Eosinophils % (auto) 4.7 %; Immature Granulocytes # (auto) 0.08 K/uL (0.01-0.20); Immature Granulocytes % (auto) 1.3 %; Lymphocytes # (auto) 0.84 K/uL (1.20-3.40); Lymphocytes % (auto) 13.7 %; Monocytes # (auto) 0.57 K/uL (0.11-0.59); Monocytes % (auto) 9.3 %; Neutrophils # (auto) 4.32 K/uL (1.40-6.50); Neutrophils % (auto) 70.5 %
--- NOTE | 2023-10-03 10:26 | Nephrology Progress Note ---
Date of Service October 03, 2023 Assessment & Plan (1) DARELL (acute kidney injury): Plan: Non-oliguric. Electrolytes normal. Creatinine 4.66 --> 5.17 mg/dL. Electrolytes acceptable. Volume status improved. There is no emergent indication for [employer] at this time. Urine output increasing. No additional diuretic provided this AM. Document strict I/O's. Document AM weight. Goal is to maintain an even or slightly negative fluid balance. DARELL attributed to sepsis and hemodynamic instability. Lisinopril has been held. (2) CKD (chronic kidney disease) stage 5, GFR less than 15 ml/min: Plan: Baseline creatinine 3.7-4.0 mg/dL. CKD attributed to PKD. AVF placed 09/10 is not mature for use. Medications are appropriately dosed for kidney function. (3) Polycystic kidney disease, autosomal dominant: (4) Complicated UTI (urinary tract infection): Plan: Clinically improving. Final cultures pending. Urine + E coli. 1/2 blood cultures from admission GNR. Follow up blood cultures negative for growth at 24 hours. Remains on ceftriaxone. (5) Anemia: Plan: Hgb stable. PATEL therapy not indicated at this time. Iron deficiency noted. IV iron replacement deferred pending treatment of infection. (6) Paroxysmal atrial fibrillation: Plan: Rate controlled. Denies symptoms. Remains on amiodarone gtt. Cardiology following. Admission and Anticipated Discharge Date Admission Date: September 29, 2023 Subjective No acute events overnight. Michael feels reasonably well this AM. He denies chest pains or palpitations. He has been out of bed and walking in his hospital room. No lightheadedness or dizziness. Denies significant dyspnea. Shortness of breath has improved. Dry cough improved. Reports good urine output but I/O's not completely documented. Voided 400 ml this AM. No urinary complaints. No fevers or chills. Review of Systems Review of Systems: All systems reviewed & are unremarkable except as noted in HPI & below Physical Exam Constitutional: well developed and + obese; no acute distress Eyes: + anicteric sclerae ENMT: Mouth: no oral mucosal abnormality and oral mucous membranes not dry Neck: normal visual inspection and trachea midline Respiratory: normal respiratory effort Auscultation: lungs clear to auscultation bilaterally and + wheezes (soft, improved) Cardiovascular: Rate/Rhythm: + irregularly irregular Heart Sounds: normal S1 and normal S2 Extremities: + edema and + AV fistula Musculoskeletal: Extremities: no cyanosis and no clubbing Skin: normal turgor; no lesions Neurologic: Motor/Sensory: no tremor and no asterixis Psychiatric: Orientation: alert and oriented x 3 Results & Data Vital Signs (Past 12 Hours) Vital Signs Temp Pulse Pulse Resp BP Pulse Ox O2 Del Method 10/03/23 07:04 36.3 C L 99 H 18 118/77 94 Room Air 10/03/23 02:48 36.7 C 92 H 18 112/79 97 CPAP 10/02/23 23:15 97 H 10/02/23 22:56 37.2 C 119 H 20 106/68 93 Room Air Laboratory Results Laboratory Results - last 24 hr 10/03/23 06:31 WBC 6.13 RBC 3.61 L Hgb 10.0 L Hct 31.7 L MCV 87.8 MCH 27.7 MCHC 31.5 L RDW Std Deviation 46.5 H RDW Coeff of Ruth 14.5 Plt Count 179 MPV 12.1 Immature Gran % (Auto) 1.3 Neut % (Auto) 70.5 Lymph % (Auto) 13.7 [place] % (Auto) 9.3 Eos % (Auto) 4.7 Baso % (Auto) 0.5 Neut # (Auto) 4.32 Lymph # (Auto) 0.84 L [place] # (Auto) 0.57 Eos # (Auto) 0.29 Baso # (Auto) 0.03 Immature Gran # (Auto) 0.08 Sodium 134 L Potassium 3.8 Chloride 101 Carbon Dioxide 22 Anion Gap 11 BUN 98 H Creatinine 5.17 H* D Est Cr Clr Drug Dosing 15.8 Est GFR ( Amer) 11.2 Est GFR (Non-Af Amer) 9.6 BUN/Creatinine Ratio 19.0 Glucose 113 H Calcium 8.7 PG Care Time/CCT Total # of Minutes Spent Total Time Spent with Patient: Total time spent is greater than 50% in coordination of care (as documented) at patient's floor/unit and/or counseling patient: Coding Level of Care Code 32948 SUB INP/OBS CARE 3/50MIN Diagnoses DARELL (acute kidney injury) N17.9 CKD (chronic kidney disease) stage 5, GFR less than 15 ml/min N18.5 Polycystic kidney disease, autosomal dominant Q61.2 Complicated UTI (urinary tract infection) N39.0 Anemia D64.9 Paroxysmal atrial fibrillation I48.0
--- NOTE | 2023-10-03 13:07 | Hospitalist Progress Note ---
Date of Service October 03, 2023 Assessment & Plan (1) Sepsis: Plan: Presented with fever, tachycardia, tachypnea, and source of infection being UTI, now with septicemia with E. coli. hemodynamics have now been respectable With DARELL slightly worse ongoing in-hospital vigilance. Appreciate nephrology input Was given total of 2.25L isotonic fluid in first 24 hrs here and now with some wheezing, cough, tachypnea but no hypoxia--> is mildly fluid overloaded with pulm vasc congestion on CXR--> IV lasix x 1 Ur cx E. coli res to Ampicillin, Intermed resis to Unasyn 09/28 BCxs E. coli in 1/2 sets, no growth to date on BCxs from 09/29 Continue ceftriaxone for now Once he is stable enough for discharge, then can consider p.o. options if further duration of treatment is still needed ongoing close clinical follow-up (2) Complicated UTI (urinary tract infection): Plan: Several days of urinary symptoms prior to admission. Most likely seeded through prostate and therefore will need to follow duration of antibiotics based on symptom resolution as it relates to possible prostate symptoms With E. coli septicemia With polycystic kidney disease and no abdominal pain but given sepsis, checked CT abdomen/pelvis--> shows nephrolithiasis but not obstructing and large interpolar calculus with calyectasis on left but no hydronephrosis. PVR is acceptable prior hospitalist has discussed with urology-no intervention needed Continue antibiotics (3) Paroxysmal atrial fibrillation: Plan: Went into rapid atrial fibrillation with rates as high as 150s in the morning of 09/29. He has a history of paroxysmal atrial fibrillation picked up on ambulatory heart monitor a few years ago and is on Eliquis and metoprolol, but he is asymptomatic with it Consult cardiology appreciated-started amiodarone gtt with rates being very well-controlled and him being totally asymptomatic from the A-fib, amiodarone st opped. Metoprolol increased to 75 mg daily. Continue to follow. Anticoagulated with Eliquis. (4) CKD (chronic kidney disease) stage 4, GFR 15-29 ml/min: Plan: DARELL on CKD4, secondary to polycystic kidney disease. AVF placed August 2023- not mature yet. Baseline creatinine 3.33.8, recently has been as high as 4.2 Acutely elevated at 4.77 on admission and not much improved with IVFs to 4.66 MRI abdomen 08/2023: Massively enlarged kidneys with innumerable simple and mildly complicated cysts consistent with polycystic disease. Layering blood products within hemorrhagic cysts. No suspicious lesions. Good follow-up with contrast-enhanced MRI for renal mass protocol to exclude subtle renal malignancy. CT abdomen/pelvis here with cysts and stones in the kidneys, no hydronephrosis Slight bump in creatinine right now, appreciate nephrology input. Continuing to hold lisinopril and colchicine (home meds) (5) Hypertension: Plan: blood pressure is reasonable given the situation (6) Anemia: Plan: Hgb mildly low and stable at 10.0, normocytic Fe studies show transferrin sat low at 6%, normal ferritin but could be elevated as acut ephase reactant B12, folate normal Needs iron but hold off in setting of bacteremia continue to follow CBC (7) CAD (coronary artery disease): Plan: Troponin elevation at 232 and then down to 209 on repeat ECG without ischemic changes, no chest pain, likely myocardial demand ischemia secondary to sepsis CAD, PCI in [place] more than 10 years ago asymptomatic from a coronary standpoint. Continue to follow (8) Polycystic kidney disease, autosomal dominant: Plan: as noted (9) Nephrolithiasis: Plan: As noted above, follow-up with urology as an outpatient, no acute intervention needed (10) KARISSA (obstructive sleep apnea): Plan: continue cpap qhs Plan Diet: Heart healthy, low potassium Disposition: Continued stay on PCU group and all of his comorbidities and changes in A-fib rate controlling medications CODE STATUS: DNR. Would not want remeasure/resuscitation in a cardiac arrest, is okay with intubation temporarily for declining respiratory status listed as conditional code for clarity and due to family concern DNR/DNI could be misinterpreted outside of code setting DVT prophylaxis: Anticoagulated with Eliquis prior hospitalist discussed his care with son and grandson at bedside 10/01 Admission and Anticipated Discharge Date Admission Date: September 29, 2023 Subjective Other than feeling weak, he notes that he feels fairly well. Even with his weaknesshe notes he was able to get up and out of bed in the chair under his own power. Nephrology input appreciated. No acute complaints otherwise. No chest pain or shortness of breath. Review of Systems Review of Systems: All systems reviewed & are unremarkable except as noted in HPI & below Physical Exam Physical Exam: In general he is awake alert oriented pleasant no distress. HEENT normocephalic atraumatic mucous membranes moist. Cardio is regular without rubs murmurs gallops. Lungs clear to auscultation bilaterally no rales rhonchi or wheeze with good effort. Abdomen soft nondistended nontender no masses organomegaly. Extremities without cyanosis or clubbing, does have a little bit of bilateral lower extremity edema no calf tenderness. Skin without rashes pallor or icterus. Results & Data Results & Data Vital Signs (Past 12 Hours) Vital Signs Temp Pulse Resp BP Pulse Ox O2 Del Method 10/03/23 11:39 97.3 F L 89 18 112/70 93 Room Air 10/03/23 07:04 97.3 F L 99 H 18 118/77 94 Room Air 10/03/23 02:48 98.1 F 92 H 18 112/79 97 CPAP PG Care Time/CCT Total # of Minutes Spent Total Time Spent with Patient: Total time spent is greater than 50% in coordination of care (as documented) at patient's floor/unit and/or counseling patient: Coding Level of Care Code 20033 SUB INP/OBS CARE 3/50MIN Diagnoses Sepsis A41.9 Complicated UTI (urinary tract infection) N39.0 Paroxysmal atrial fibrillation I48.0 CKD (chronic kidney disease) stage 4, GFR 15-29 ml/min N18.4 Hypertension I10 Anemia D64.9 CAD (coronary artery disease) I25.10 Polycystic kidney disease, autosomal dominant Q61.2 Nephrolithiasis N20.0 KARISSA (obstructive sleep apnea) G47.33
[2023-10-03] MEDS: guaiFENesin/DEXTROM SYRUP 200MG/20MG 10ML UDC PO PRN (20:13)
[2023-10-04 08:11] LABS: Hematocrit (blood only) 31.8 % (42.0-52.0); Hemoglobin 10.1 g/dl (14.0-18.0); Mean Corpuscular Hemoglobin 27.5 pg (25.0-34.0); Mean Corpuscular Hgb Conc 31.8 g/dL (32.0-36.0); Mean Corpuscular Volume 86.6 fL (80.0-100.0); Mean Platelet Volume 12.1 fL (9.4-12.4); Platelet Count 181 K/uL (130-400); RDW Coefficient of Variation 14.6 % (11.5-14.5); RDW Standard Deviation 46.5 fL (36.4-46.3); Red Blood Count 3.67 M/uL (4.70-6.10); White Blood Count 4.33 K/ul (4.8-10.8)
[2023-10-04 08:28] LABS: BUN Creatinine Ratio 18.5 (10-20); Calcium 8.6 mg/dl (8.6-10.3); Creatinine Clr Calc Pharmacy 15.1 ml/min; Est GFR (African American) 10.6 ml/min; Est GFR (Non-African American) 9.1 ml/min; Potassium 3.9 mmol/L (3.5-5.1)
[2023-10-04] MEDS: METOPROLOL SUCC 25MG EXT REL TAB PO SCH (08:36)
[2023-10-04 08:59] LABS: Basophils # (auto) 0.02 K/uL (0.00-0.20); Basophils % (auto) 0.5 %; Eosinophils # (auto) 0.24 K/uL (0.00-0.50); Eosinophils % (auto) 5.5 %; Immature Granulocytes # (auto) 0.08 K/uL (0.01-0.20); Immature Granulocytes % (auto) 1.8 %; Lymphocytes # (auto) 0.76 K/uL (1.20-3.40); Lymphocytes % (auto) 17.6 %; Monocytes # (auto) 0.39 K/uL (0.11-0.59); Neutrophils # (auto) 2.84 K/uL (1.40-6.50); Neutrophils % (auto) 65.6 %
--- NOTE | 2023-10-04 09:09 | Infectious Disease Consult ---
Date of Consultation October 04, 2023 Assessment & Plan (1) CKD (chronic kidney disease) stage 5, GFR less than 15 ml/min: (2) Elevated troponin: (3) Sepsis: (4) Complicated UTI (urinary tract infection): Plan #Ecoli UTI/Prostatitis c/b Ecoli bacteremia #PCKD 83 yo M w CKD, polycystic kidney disease, hypertension, vitamin D deficiency, and anemia without history of GI bleeding admitted 09/28 polyuria/nocturia, fever/chills, and weakness. ID consulted for Ecoli sepsis On admission, WBC 8.7, platelets 148, Cr 4.77 , PCT 51. AST/ALT 47/32, elevated troponins, thought to be secondary to demand ischemia per Cardiology. UA +LE/Nit, >50 wbcs, 4+bacteria, 3+ blood. Chest x-ray does not show any acute abnormalities, no evidence of pneumonia. 2DE no vegetation, normal EF, no valve abnormalities. ID consulted when 09/28 Blood culture / bottles Ecoli R amp, Unasyn, I cefazolin, 09/28 Ucx >100K Ecoli (R to amp, I Unasyn). 09/[address] A/P shows Prostamegaly with evidence of chronic bladder outlet obstruction. Findings should be correlated with urinalysis to exclude s uperimposed cystitis, Bilateral nephrolithiasis without ureteral calculi identified, mild left-sided and caliectasis, possibly secondary to the large calculi within the interpolar distribution. Patient is on IV ceftriaxone, QTc 448 suspect this is prostatitis and will need to be treated for 4 weeks, however we can likely transition to oral antibiotics, Would also not give bactrim given his CKD/fluctuating Creatinine. He is also allergic to quinolones. While beta lactams not best penetrated into kidney they have increased penetration with inflammation. 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 RECOMMEND -Plan for a total of 4 weeks of abx therapy through 10/26/23, While inpatient keep on Ceftriaxone 2 G IV daily -When he is ready for discharge can change to Cefdinir 300mg daily if GFR is 30 or less. If HD is initiated then would change to Cefdinir 300mg q48 hours when is outpatient. -Given chronic bladder outlet obstruction, would ask for urology consultation ID will s/o please page with any questions. Modesta Harrison MD Infectious Diseases [facility], [facility] Consultation Information Consultation was provided via telemedicine using two-way real-time interactive telecommunication between the patient and the telemedicine provider. For the duration of the visit, the provider was performing the assessment from a different facility than the patient. This includesuse of bluetooth stethoscope forauscultationperformed by the telepresenter that the telemedicine provider can hear if described in the physical exam. Stave Inspector contact information: Please call [facility] Call Center [phone]. (Phone Number For Physician Use Only) After establishing a telemedicine visit, patient was: Patient was verified with two unique identifiers, Patient/authorized rep acknowledged consent and understanding and Gave permission to continue telehealth session Time Spent with Patient: Initial => 55 min History of Present Illness Reason for Consultation: UTI with bacteremia Requesting Physician: Dr. Stanley Attending Physician: Laura Stanley MD History of Present Illness 83 yo M with h/o CKD, polycystic kidney disease, hypertension, vitamin D deficiency, and anemia without history of GI bleeding admitted 09/28 polyuria/nocturia, fever/chills, and weakness. ID consulted for Ecoli sepsis On admission, WBC 8.7, platelets 148, Cr 4.77 (baseline of around 3.33.8), PCT 51. AST/ALT 47/32, elevated troponins, thought to be secondary to demand ischemia per Cardiology. UA +LE/Nit, >50 wbcs, 4+bacteria, 3+ blood. Chest x-ray does not show any acute abnormalities, no evidence of pneumonia and no evidence of pulmonary edema. 2DE no vegetation, normal EF, no valve abnormalities. ID consulted when 09/28 Blood culture / bottles Ecoli R amp, Unasyn, I cefazolin, 09/28 Ucx >100K Ecoli (R to amp, I Unasyn). 09/[address] A/P shows Prostamegaly with evidence of chronic bladder outlet obstruction. Findings should be correlated with urinalysis to exclude superimposed cystitis, Bilateral nephrolithiasis without ureteral calculi identified, mild left-sided and caliectasis, possibly secondary to the large calculi within the interpolar distribution. Patient is on IV ceftriaxone Allergies Allergy/AdvReac Type Severity Reaction Status Date / Time adhesive tape Allergy Unknown Verified 09/27/23 14:51 levofloxacin [From Levaquin] Allergy Unknown Rash Verified 09/27/23 14:51 Penicillins Allergy Unknown Verified 09/27/23 14:51 Home Medications Medication Instructions Recorded Confirmed Type amlodipine 10 mg tablet 10 mg PO DAILY 01/24/19 09/29/23 History aspirin 81 mg tablet 81 mg PO DAILY 01/24/19 09/29/23 History coenzyme Q10 100 mg capsule (Co 100 mg PO DAILY 01/24/19 09/29/23 History Q-10) ezetimibe 10 mg tablet 10 mg PO DAILY 01/24/19 09/29/23 History fenofibrate micronized 134 mg 134 mg PO DAILY 01/24/19 09/29/23 History capsule multivitamin (Daily Multi-Vitamin 1 tab PO DAILY 01/24/19 09/29/23 History tablet) pravastatin 20 mg tablet 20 mg PO DAILY 01/24/19 09/29/23 History terazosin 10 mg capsule 10 mg PO DAILY 01/24/19 09/29/23 History apixaban 2.5 mg tablet (Eliquis) 2.5 mg PO BID #60 tabs 01/29/19 09/29/23 Rx metoprolol tartrate 25 mg tablet 25 mg PO DAILY #30 tabs 12/25/19 09/29/23 Rx lisinopril 40 mg tablet 40 mg PO DAILY 07/06/22 09/29/23 History ergocalciferol (vitamin D2) 1,250 50,000 unit PO .COMPLEX #20 caps 09/20/22 Rx mcg (50,000 unit) capsule allopurinol 100 mg tablet 100 mg PO Q4D 06/07/23 09/29/23 History furosemide 40 mg tablet 40 mg PO DAILY #90 tabs 07/19/23 09/29/23 Rx colchicine 0.6 mg tablet 0.6 mg PO BID 09/27/23 09/29/23 History Patient History Medical History CKD (chronic kidney disease) stage 5, GFR less than 15 ml/min CAD (coronary artery disease) Nephrolithiasis Paroxysmal atrial fibrillation Microscopic hematuria Diabetes mellitus, type II Gout Hypertension KARISSA (obstructive sleep apnea) Polycystic kidney disease, autosomal dominant Surgical History S/P coronary artery stent placement H/O umbilical hernia repair Family History Denies family history of Sudden Cerebral aneurysm Heart disease Congenital kidney disease Stroke Cystic kidney disease Social History Smoking Status: Former smoker Hx Alcohol Use: No Hx Substance Use: No Preferred Language: Vietnamese Communication Ability: Effective Hospitalist Nocturnist Physician Required: No Current Living Situation: Alone Feels Safe at Home: Yes Safety Concerns: Feels Safe At This Time Assistive Devices: Cane, Walker and Wheelchair Results & Data Vital Signs (Past 12 Hours) Vital Signs Temp Pulse Pulse Resp BP Pulse Ox O2 Del Method 10/04/23 07:07 36.6 C 94 H 18 116/73 96 Room Air 10/04/23 03:59 36.6 C 84 20 120/76 98 CPAP 10/04/23 00:14 36.8 C 91 H 18 107/73 96 CPAP 10/03/23 23:00 74 Laboratory Results Laboratory Results - last 48 hr 10/03/23 10/04/23 06:31 06:50 WBC 6.13 4.33 L RBC 3.61 L 3.67 L Hgb 10.0 L 10.1 L Hct 31.7 L 31.8 L MCV 87.8 86.6 MCH 27.7 27.5 MCHC 31.5 L 31.8 L RDW Std Deviation 46.5 H 46.5 H RDW Coeff of Ruth 14.5 14.6 H Plt Count 179 181 MPV 12.1 12.1 Immature Gran % (Auto) 1.3 1.8 Neut % (Auto) 70.5 65.6 Lymph % (Auto) 13.7 17.6 Brule % (Auto) 9.3 9.0 Eos % (Auto) 4.7 5.5 Baso % (Auto) 0.5 0.5 Neut # (Auto) 4.32 2.84 Lymph # (Auto) 0.84 L 0.76 L Brule # (Auto) 0.57 0.39 Eos # (Auto) 0.29 0.24 Baso # (Auto) 0.03 0.02 Immature Gran # (Auto) 0.08 0.08 Sodium 134 L 133 L Potassium 3.8 3.9 Chloride 101 100 Carbon Dioxide 22 20 L Anion Gap 11 13 H BUN 98 H 100 H Creatinine 5.17 H* D 5.40 H* Est Cr Clr Drug Dosing 15.8 15.1 Est GFR ( Amer) 11.2 10.6 Est GFR (Non-Af Amer) 9.6 9.1 BUN/Creatinine Ratio 19.0 18.5 Glucose 113 H 100 H Calcium 8.7 8.6 Microbiology 09/30/23 19:22 Blood Aerobic Blood Culture - Preliminary No growth in Aerobic bottle after 48 hours. 09/30/23 19:22 Blood Anaerobic Blood Culture - Preliminary No growth in Anaerobic bottle after 48 hours. 09/30/23 19:22 Blood Aerobic Blood Culture - Preliminary No growth in Aerobic bottle after 48 hours. 09/30/23 19:22 Blood Anaerobic Blood Culture - Preliminary No growth in Anaerobic bottle after 48 hours. 09/29/23 15:03 Blood Aerobic Blood Culture - Final Escherichia coli 09/29/23 15:03 Blood Anaerobic Blood Culture - Final Escherichia coli 09/29/23 15:00 Blood Aerobic Blood Culture - Preliminary No growth in Aerobic bottle after 48 hours. 09/29/23 15:00 Blood Anaerobic Blood Culture - Preliminary No growth in Anaerobic bottle after 48 hours. 09/29/23 15:58 Urine,Clean Catch Urine Culture - Final Escherichia coli Medications Administered Home Medications Medication Instructions Recorded Confirmed Last Taken amlodipine 10 mg tablet 10 mg PO DAILY 01/24/19 09/29/23 Unknown aspirin 81 mg tablet 81 mg PO DAILY 01/24/19 09/29/23 Unknown coenzyme Q10 100 mg capsule (Co 100 mg PO DAILY 01/24/19 09/29/23 Unknown Q-10) ezetimibe 10 mg tablet 10 mg PO DAILY 01/24/19 09/29/23 Unknown fenofibrate micronized 134 mg 134 mg PO DAILY 01/24/19 09/29/23 Unknown capsule multivitamin (Daily Multi-Vitamin 1 tab PO DAILY 01/24/19 09/29/23 Unknown tablet) pravastatin 20 mg tablet 20 mg PO DAILY 01/24/19 09/29/23 Unknown terazosin 10 mg capsule 10 mg PO DAILY 01/24/19 09/29/23 Unknown apixaban 2.5 mg tablet (Eliquis) 2.5 mg PO BID #60 tabs 01/29/19 09/29/23 Unknown metoprolol tartrate 25 mg tablet 25 mg PO DAILY #30 tabs 12/25/19 09/29/23 Unknown lisinopril 40 mg tablet 40 mg PO DAILY 07/06/22 09/29/23 Unknown ergocalciferol (vitamin D2) 1,250 50,000 unit PO .COMPLEX #20 caps 09/20/22 09/29/23 Unknown mcg (50,000 unit) capsule allopurinol 100 mg tablet 100 mg PO Q4D 06/07/23 09/29/23 Unknown furosemide 40 mg tablet 40 mg PO DAILY #90 tabs 07/19/23 09/29/23 Unknown colchicine 0.6 mg tablet 0.6 mg PO BID 09/27/23 09/29/23 Unknown Active Medications Generic Name Dose Route Start Last Admin Trade Name Freq PRN Reason Stop Dose Admin Allopurinol 100 mg 10/01/23 10:00 10/01/23 10:26 Allopurinol 100 Mg Tab PO 10/31/23 09:59 100 mg Q4D@0900 ELVIS Administration Amlodipine Besylate 10 mg 09/30/23 09:00 10/04/23 08:35 Amlodipine Besylate 5 Mg Tab PO 10/30/23 08:59 10 mg DAILY ELVIS Administration Apixaban 2.5 mg 09/29/23 21:00 10/04/23 08:35 Apixaban 2.5 Mg Tab PO 10/29/23 20:59 2.5 mg BID ELVIS Administration Aspirin 81 mg 09/30/23 09:00 10/04/23 08:34 Aspirin 81 Mg Ectab PO 10/30/23 08:59 81 mg DAILY ELVIS Administration Ezetimibe 10 mg 09/30/23 09:00 10/04/23 08:36 Ezetimibe 10 Mg Tab PO 10/30/23 08:59 10 mg DAILY ELVIS Administration Fenofibrate 145 mg 09/30/23 09:00 10/04/23 08:35 Fenofibrate Nanocrystallized 145 Mg Tablet PO 10/30/23 08:59 145 mg DAILY ELVIS Administration Guaifenesin/Dextromethorphan 10 ml 10/01/23 08:37 10/04/23 08:53 Guaifenesin/Dextrom Syrup 200mg/20mg 10ml Udc PO 10/31/23 08:36 10 ml Q6H PRN Administration Cough Ceftriaxone Sodium 2,000 mg/ 50 mls @ 100 mls/hr 09/30/23 17:00 10/03/23 17:39 Dextrose IV 10/10/23 16:59 Infused Q24H ELVIS Infusion Protocol Metoprolol Succinate 75 mg 10/04/23 09:00 10/04/23 08:36 Metoprolol Succ 25mg Ext Rel Tab PO 11/03/23 08:59 75 mg DAILY ELVIS Administration Multivitamins 1 tab 09/30/23 09:00 10/04/23 08:36 Multivitamin Tab PO 10/30/23 08:59 1 tab QAM ELVIS Administration Pravastatin Sodium 20 mg 09/30/23 09:00 10/04/23 08:35 Pravastatin Sod 20 Mg Tab PO 10/30/23 08:59 20 mg DAILY ELVIS Administration Terazosin HCl 10 mg 09/30/23 09:00 10/04/23 08:35 Terazosin Hcl 5 Mg Cap PO 10/30/23 08:59 10 mg DAILY ELVIS Administration
--- NOTE | 2023-10-04 10:42 | Nephrology Progress Note ---
Date of Service October 04, 2023 Assessment & Plan (1) DARELL (acute kidney injury): Plan: Non-oliguric. Electrolytes normal. Creatinine continues to trend upward. Volume status acceptable. There is no emergent indication for TIN POURER at this time. However, guarded prognosis for renal recovery. Potential future indications for starting HD were reviewed today. Urine output acceptable. Document strict I/O's. Document AM weight. Goal is to maintain an even or slightly negative fluid balance. DARELL attributed to sepsis and hemodynamic instability. Lisinopril has been held. (2) CKD (chronic kidney disease) stage 5, GFR less than 15 ml/min: Plan: Baseline creatinine 3.7-4.0 mg/dL. CKD attributed to PKD. AVF placed 09/10 is not mature for use. Medications are appropriately dosed for kidney function. (3) Polycystic kidney disease, autosomal dominant: (4) Complicated UTI (urinary tract infection): Plan: ID consultation pending. Remains on ceftriaxone. (5) Anemia: Plan: Hgb stable. PATEL therapy not indicated at this time. Iron deficiency noted. IV iron replacement deferred pending treatment of infection. (6) Paroxysmal atrial fibrillation: Plan: Rate controlled. Denies symptoms. Amiodarone gtt stopped yesterday. Cardiology following. Admission and Anticipated Discharge Date Admission Date: September 29, 2023 Subjective No acute events overnight. Michael continues to feel well. Urine output increased. Slightly negative fluid balance documented without diuretics. Dry cough slightly increased. Overall, Michael feels well. No chest pain or palpitations. Michael denies notable dyspnea. He denies significant fluid retention or edema. Review of Systems Review of Systems: All systems reviewed & are unremarkable except as noted in HPI & below Physical Exam Constitutional: well developed and + obese; no acute distress Eyes: + anicteric sclerae; no corneal abnormal ity ENMT: Mouth: no oral mucosal abnormality and oral mucous membranes not dry Neck: normal visual inspection and trachea midline Respiratory: normal respiratory effort, + cough and + tachypneic Auscultation: lungs clear to auscultation bilaterally and + wheezes (soft, improved) Cardiovascular: Rate/Rhythm: + irregularly irregular Heart Sounds: normal S1 and normal S2 Extremities: + edema and + AV fistula Musculoskeletal: Extremities: no cyanosis and no clubbing Skin: normal turgor; no lesions Neurologic: Motor/Sensory: no tremor and no asterixis Psychiatric: Orientation: alert and oriented x 3 Results & Data Vital Signs (Past 12 Hours) Vital Signs Temp Pulse Pulse Resp BP Pulse Ox O2 Del Method 10/04/23 09:58 Room Air 10/04/23 07:07 36.6 C 94 H 18 116/73 96 Room Air 10/04/23 03:59 36.6 C 84 20 120/76 98 CPAP 10/04/23 00:14 36.8 C 91 H 18 107/73 96 CPAP 10/03/23 23:00 74 Laboratory Results Laboratory Results - last 24 hr 10/04/23 06:50 WBC 4.33 L RBC 3.67 L Hgb 10.1 L Hct 31.8 L MCV 86.6 MCH 27.5 MCHC 31.8 L RDW Std Deviation 46.5 H RDW Coeff of Ruth 14.6 H Plt Count 181 MPV 12.1 Immature Gran % (Auto) 1.8 Neut % (Auto) 65.6 Lymph % (Auto) 17.6 Coffey % (Auto) 9.0 Eos % (Auto) 5.5 Baso % (Auto) 0.5 Neut # (Auto) 2.84 Lymph # (Auto) 0.76 L Coffey # (Auto) 0.39 Eos # (Auto) 0.24 Baso # (Auto) 0.02 Immature Gran # (Auto) 0.08 Sodium 133 L Potassium 3.9 Chloride 100 Carbon Dioxide 20 L Anion Gap 13 H BUN 100 H Creatinine 5.40 H* Est Cr Clr Drug Dosing 15.1 Est GFR ( Amer) 10.6 Est GFR (Non-Af Amer) 9.1 BUN/Creatinine Ratio 18.5 Glucose 100 H Calcium 8.6 PG Care Time/CCT Total # of Minutes Spent Total Time Spent with Patient: Total time spent is greater than 50% in coordination of care (as documented) at patient's floor/unit and/or counseling patient: Coding Level of Care Code 82923 SUB INP/OBS CARE 3/50MIN Diagnoses DARELL (acute kidney injury) N17.9 CKD (chronic kidney disease) stage 5, GFR less than 15 ml/min N18.5 Polycystic kidney disease, autosomal dominant Q61.2 Complicated UTI (urinary tract infection) N39.0 Anemia D64.9 Paroxysmal atrial fibrillation I48.0
--- NOTE | 2023-10-04 14:00 | Hospitalist Progress Note ---
Date of Service October 04, 2023 Assessment & Plan (1) Sepsis: Plan: Resolving Source is likely the UTI, culprit organism E. coli. Urine and blood cultures growing E. coli as well Currently on IV ceftriaxone Given that the source could also be from prostatitis, infectious disease thinks that he may need 4 weeks of antibiotics (2) Complicated UTI (urinary tract infection): Plan: Several days of urinary symptoms prior to admission. Most likely seeded through prostate and therefore will need to follow duration of antibiotics based on symptom resolution as it relates to possible prostate symptoms With E. coli septicemia With polycystic kidney disease and no abdominal pain but given sepsis, checked CT abdomen/pelvis--> shows nephrolithiasis but not obstructing and large interpolar calculus with calyectasis on left but no hydronephrosis. PVR is acceptable prior hospitalist has discussed with urology-no intervention needed Continue antibiotics, while in hospital continue IV ceftriaxone. Upon discharge p.o. cefdinir, day dosing depends on if patient has been to go home on hemodialysis (3) Paroxysmal atrial fibrillation: Plan: Rate is now under better control Consult cardiology appreciated-started amiodarone gtt with rates being very well-controlled and him being totally asymptomatic from the A-fib, amiodarone s topped. Metoprolol increased to 75 mg daily. Continue to follow. Anticoagulated with Eliquis. (4) CKD (chronic kidney disease) stage 4, GFR 15-29 ml/min: Plan: DARELL on CKD4, secondary to polycystic kidney disease. AVF placed August 2023- not mature yet. Serum creatinine continues to trend up MRI abdomen 08/2023: Massively enlarged kidneys with innumerable simple and mildly complicated cysts consistent with polycystic disease. CT abdomen/pelvis here with cysts and stones in the kidneys, no hydronephrosis Continuing to hold lisinopril and colchicine (home meds) Appreciate nephro recommendations. (5) Hypertension: Plan: blood pressure is reasonable given the situation (6) Anemia: Plan: Hgb mildly low and stable at 10.0, normocytic Fe studies show transferrin sat low at 6%, normal ferritin but could be elevated as acut ephase reactant B12, folate normal Needs iron but hold off in setting of bacteremia continue to follow CBC (7) CAD (coronary artery disease): Plan: Troponin elevation at 232 and then down to 209 on repeat ECG without ischemic changes, no chest pain, likely myocardial demand ischemia secondary to sepsis CAD, PCI in [place] more than 10 years ago asymptomatic from a coronary standpoint. Continue to follow (8) Polycystic kidney disease, autosomal dominant: Plan: as noted (9) Nephrolithiasis: Plan: As noted above, follow-up with urology as an outpatient, no acute intervention needed (10) KARISSA (obstructive sleep apnea): Plan: continue cpap qhs Plan Diet: Heart healthy, low potassium Disposition: Continued stay on PCU group and all of his comorbidities and changes in A-fib rate controlling medications CODE STATUS: DNR. Would not want remeasure/resuscitation in a cardiac arrest, is okay with intubation temporarily for declining respiratory status listed as conditional code for clarity and due to family concern DNR/DNI could be misinterpreted outside of code setting DVT prophylaxis: Anticoagulated with Eliquis Admission and Anticipated Discharge Date Admission Date: September 29, 2023 Subjective Patient seen and examined today lying quietly in bed said he feels much improved clinically denies chest pain or shortness of breath. Review of Systems Review of Systems: All systems reviewed are negative, apart from the ones contained in the history. Physical Exam Physical Exam: The patient is awake, alert and oriented 3, well developed and well nourished, normocephalic and atraumatic, lying in bed and in no acute distress. HEENT--PERRL, EOMI, mucous membranes and oropharynx mildly dry Neck--supple. No JVD. No bruits. Thyroid normal, trachea midline, no adenopathy. Heart--normal S1 and S2. No murmurs, rubs or gallops. Lungs--clear bilaterally, no respiratory distress, no accessory muscle use. Abdomen--normal bowel sounds and soft. Extremities--no cyanosis or clubbing. No edema. Dermatologic--normal skin turgor, normal color, no abnormal lymph nodes, no rash. Neurologic--cranial nerves II through XII grossly intact. Rheumatologic--normal range of motion. Psychiatric--normal affect. Results & Data Results & Data Vital Signs (Past 12 Hours) Vital Signs Temp Pulse Resp BP Pulse Ox O2 Del Method 10/04/23 11:29 97.3 F L 76 18 96/66 L 98 Room Air 10/04/23 09:58 Room Air 10/04/23 07:07 97.9 F 94 H 18 116/73 96 Room Air 10/04/23 03:59 97.9 F 84 20 120/76 98 CPAP PG Care Time/CCT Total # of Minutes Spent Total Time Spent with Patient: Total time spent is greater than 50% in coordination of care (as documented) at patient's floor/unit and/or counseling patient: Coding Level of Care Code 81871 SUB INP/OBS CARE 2/35MIN Diagnoses Sepsis A41.9 Complicated UTI (urinary tract infection) N39.0 Paroxysmal atrial fibrillation I48.0 CKD (chronic kidney disease) stage 4, GFR 15-29 ml/min N18.4 Hypertension I10 Anemia D64.9 CAD (coronary artery disease) I25.10 Polycystic kidney disease, autosomal dominant Q61.2 Nephrolithiasis N20.0 KARISSA (obstructive sleep apnea) G47.33 Time Spent (min) 35
[2023-10-05 07:48] LABS: Hematocrit (blood only) 29.9 % (42.0-52.0); Hemoglobin 9.9 g/dl (14.0-18.0); Mean Corpuscular Hemoglobin 27.9 pg (25.0-34.0); Mean Corpuscular Hgb Conc 33.1 g/dL (32.0-36.0); Mean Corpuscular Volume 84.2 fL (80.0-100.0); Mean Platelet Volume 11.8 fL (9.4-12.4); Platelet Count 213 K/uL (130-400); RDW Coefficient of Variation 14.6 % (11.5-14.5); RDW Standard Deviation 45.7 fL (36.4-46.3); Red Blood Count 3.55 M/uL (4.70-6.10); White Blood Count 4.34 K/ul (4.8-10.8)
[2023-10-05 08:11] LABS: BUN Creatinine Ratio 19.5 (10-20); Calcium 8.4 mg/dl (8.6-10.3); Creatinine Clr Calc Pharmacy 15.5 ml/min; Est GFR (African American) 10.9 ml/min; Est GFR (Non-African American) 9.4 ml/min; Potassium 3.9 mmol/L (3.5-5.1)
--- NOTE | 2023-10-05 10:45 | Nephrology Progress Note ---
Date of Service October 05, 2023 Assessment & Plan (1) DARELL (acute kidney injury): Plan: Non-oliguric. Electrolytes normal. Creatinine plateaued. Azotemic but denies significant uremic symptoms. Volume status acceptable. There is no emergent indication for MOHS SURGEON/GENERAL DERMATOLOGIST at this time. However, guarded prognosis for renal recovery. Potential future indications for starting HD were reviewed. Urine output acceptable. Document strict I/O's. Document AM weight. Goal is to maintain an even or slightly negative fluid balance. DARELL attributed to sepsis and hemodynamic instability. Lisinopril has been held. If kidney function is stable or improved on repeat testing tomorrow and volume status remains appropriate, I advised Michael that discharge home with close outpatient follow up would be appropriate. I suggested blood work to be rechecked on Tuesday. I will arrange for a follow up visit with me in the [facility] nephrology clinic in [place] on Tuesday. (2) CKD (chronic kidney disease) stage 5, GFR less than 15 ml/min: Plan: Baseline creatinine 3.7-4.0 mg/dL. CKD attributed to PKD. AVF placed 09/10 is not mature for use. Medications are appropriately dosed for kidney function. (3) Polycystic kidney disease, autosomal dominant: (4) Complicated UTI (urinary tract infection): Plan: ID consultation appreciated. Remains on ceftriaxone. Anticipated discharge on cefdinir. (5) Anemia: Plan: Hgb stable. PATEL therapy not indicated at this time. Iron deficiency noted. Venofer 200 mg IV x 1 dose now. (6) Paroxysmal atrial fibrillation: Plan: Rate controlled. Denies symptoms. Admission and Anticipated Discharge Date Admission Date: September 29, 2023 Subjective No acute events overnight. No chest pains or palpitations. Denies dyspnea. Appetite is good. Denies significant fluid retention or edema. Good urine output. Review of Systems Review of Systems: All systems reviewed & are unremarkable except as noted in HPI & below Physical Exam Constitutional: well developed and + obese; no acute distress Eyes: + anicteric sclerae; no corneal abnormal ity ENMT: Mouth: no oral mucosal abnormality and oral mucous membranes not dry Neck: normal visual inspection and trachea midline Respiratory: normal respiratory effort Auscultation: lungs clear to auscultation bilaterally and + wheezes (soft) Cardiovascular: Rate/Rhythm: + irregularly irregular Heart Sounds: normal S1 and normal S2 Extremities: + edema and + AV fistula Musculoskeletal: Extremities: no cyanosis and no clubbing Skin: normal turgor; no lesions Neurologic: Motor/Sensory: no tremor and no asterixis Psychiatric: Orientation: alert and oriented x 3 Results & Data Vital Signs (Past 12 Hours) Vital Signs Temp Pulse Pulse Resp BP Pulse Ox O2 Del Method 10/05/23 10:08 Room Air 10/05/23 10:05 83 10/05/23 06:57 36.5 C 81 18 123/84 97 Room Air 10/05/23 03:35 36.4 C L 78 18 118/76 97 CPAP 10/04/23 23:48 36.5 C 88 18 114/77 96 CPAP Laboratory Results Laboratory Results - last 24 hr 10/05/23 06:30 WBC 4.34 L RBC 3.55 L Hgb 9.9 L Hct 29.9 L MCV 84.2 MCH 27.9 MCHC 33.1 RDW Std Deviation 45.7 RDW Coeff of Ruth 14.6 H Plt Count 213 MPV 11.8 Sodium 132 L Potassium 3.9 Chloride 98 Carbon Dioxide 22 Anion Gap 12 H BUN 103 H Creatinine 5.29 H* Est Cr Clr Drug Dosing 15.5 Est GFR ( Amer) 10.9 Est GFR (Non-Af Amer) 9.4 BUN/Creatinine Ratio 19.5 Glucose 96 Calcium 8.4 L PG Care Time/CCT Total # of Minutes Spent Total Time Spent with Patient: Total time spent is greater than 50% in coordination of care (as documented) at patient's floor/unit and/or counseling patient: Coding Level of Care Code 25051 SUB INP/OBS CARE 3/50MIN Diagnoses DARELL (acute kidney injury) N17.9 CKD (chronic kidney disease) stage 5, GFR less than 15 ml/min N18.5 Polycystic kidney disease, autosomal dominant Q61.2 Complicated UTI (urinary tract infection) N39.0 Anemia D64.9 Paroxysmal atrial fibrillation I48.0
[2023-10-05] MEDS: IRON SUCROSE 200 MG in 0.9 % SODIUM CHLORIDE 100 ML IV ONE (12:04)
--- NOTE | 2023-10-05 12:43 | Hospitalist Progress Note ---
Date of Service October 05, 2023 Assessment & Plan (1) Sepsis: Plan: Resolving Source is likely the UTI, culprit organism E. coli. Urine and blood cultures growing E. coli as well Currently on IV ceftriaxone will continue while inpatient Given that the source could also be from prostatitis, infectious disease thinks that he may need 4 weeks of antibiotics Upon discharge per infectious disease, will need p.o. cefdinir 300 mg daily and if the patient starts on hemodialysis we will switch to 30 mg every 48 hours for total of 4 weeks (2) Complicated UTI (urinary tract infection): Plan: Several days of urinary symptoms prior to admission. Most likely seeded through prostate and therefore will need to follow duration of antibiotics based on symptom resolution as it relates to possible prostate symptoms With E. coli septicemia With polycystic kidney disease and no abdominal pain but given sepsis, checked CT abdomen/pelvis--> shows nephrolithiasis but not obstructing and large interpolar calculus with calyectasis on left but no hydronephrosis. PVR is acceptable prior hospitalist has discussed with urology-no intervention needed Continue antibiotics, while in hospital continue IV ceftriaxone. Upon discharge p.o. cefdinir, day dosing depends on if patient has been to go home on hemodialysis Upon discharge per infectious disease, will need p.o. cefdinir 300 mg daily and if the patient starts on hemodialysis we will switch to 30 mg every 48 hours for total of 4 weeks (3) Paroxysmal atrial fibrillation: Plan: Rate is now under better control Consult cardiology appreciated-started amiodarone gtt with rates being very well-controlled and him being totally asymptomatic from the A-fib, amiodarone stopped. Metoprolol increased to 75 mg daily. Continue to follow. Anticoagulated with Eliquis. (4) CKD (chronic kidney disease) stage 4, GFR 15-29 ml/min: Plan: DARELL on CKD4, secondary to polycystic kidney disease. AVF placed August 2023- not mature yet. Serum creatinine continues to trend up MRI abdomen 08/2023: Massively enlarged kidneys with innumerable simple and mildly complicated cysts consistent with polycystic disease. CT abdomen/pelvis here with cysts and stones in the kidneys, no hydronephrosis Continuing to hold lisinopril and colchicine (home meds) Appreciate nephro recommendations. (5) Hypertension: Plan: blood pressure is reasonable given the situation (6) Anemia: Plan: Hgb mildly low and stable at 10.0, normocytic Fe studies show transferrin sat low at 6%, normal ferritin but could be elevated as acut ephase reactant B12, folate normal Needs iron but hold off in setting of bacteremia continue to follow CBC (7) CAD (coronary artery disease): Plan: Troponin elevation at 232 and then down to 209 on repeat ECG without ischemic changes, no chest pain, likely myocardial demand ischemia secondary to sepsis CAD, PCI in [place] more than 10 years ago asymptomatic from a coronary standpoint. Continue to follow (8) Polycystic kidney disease, autosomal dominant: Plan: as noted (9) Nephrolithiasis: Plan: As noted above, follow-up with urology as an outpatient, no acute intervention needed (10) KARISSA (obstructive sleep apnea): Plan: continue cpap qhs Plan Hopefully discharge tomorrow Diet: Heart healthy, low potassium Disposition: Continued stay on PCU group and all of his comorbidities and changes in A-fib rate controlling medications CODE STATUS: DNR. Would not want remeasure/resuscitation in a cardiac arrest, is okay with intubation temporarily for declining respiratory status listed as conditional code for clarity and due to family concern DNR/DNI could be misinterpreted outside of code setting DVT prophylaxis: Anticoagulated with Eliquis Admission and Anticipated Discharge Date Admission Date: September 29, 2023 Subjective Patient seen and examined, lying quietly in bed not in any pains tolerating diet Review of Systems Review of Systems: All systems reviewed are negative, apart from the ones contained in the history. Physical Exam Physical Exam: The patient is awake, alert and oriented 3, well developed and well nourished, normocephalic and atraumatic, lying in bed and in no acute distress. HEENT--PERRL, EOMI, mucous membranes and oropharynx mildly dry Neck--supple. No JVD. No bruits. Thyroid normal, trachea midline, no adenopathy. Heart--normal S1 and S2. No murmurs, rubs or gallops. Lungs--clear bilaterally, no respiratory distress, no accessory muscle use. Abdomen--normal bowel sounds and soft. Extremities--no cyanosis or clubbing. No edema. Dermatologic--normal skin turgor, normal color, no abnormal lymph nodes, no rash. Neurologic--cranial nerves II through XII grossly intact. Rheumatologic--normal range of motion. Psychiatric--normal affect. Results & Data Results & Data Vital Signs (Past 12 Hours) Vital Signs Temp Pulse Pulse Resp BP Pulse Ox O2 Del Method 10/05/23 11:44 97.5 F L 75 18 101/69 95 Room Air 10/05/23 10:08 Room Air 10/05/23 10:05 83 10/05/23 06:57 97.7 F 81 18 123/84 97 Room Air 10/05/23 03:35 97.5 F L 78 18 118/76 97 CPAP PG Care Time/CCT Total # of Minutes Spent Total Time Spent with Patient: Total time spent is greater than 50% in coordination of care (as documented) at patient's floor/unit and/or counseling patient: Coding Level of Care Code 25845 SUB INP/OBS CARE 2/35MIN Diagnoses Sepsis A41.9 Complicated UTI (urinary tract infection) N39.0 Paroxysmal atrial fibrillation I48.0 CKD (chronic kidney disease) stage 4, GFR 15-29 ml/min N18.4 Hypertension I10 Anemia D64.9 CAD (coronary artery disease) I25.10 Polycystic kidney disease, autosomal dominant Q61.2 Nephrolithiasis N20.0 KARISSA (obstructive sleep apnea) G47.33 Time Spent (min) 35
[2023-10-06 07:30] LABS: Calcium 8.2 mg/dl (8.6-10.3); Creatinine Clr Calc Pharmacy 15.5 ml/min; Est GFR (African American) 10.9 ml/min; Est GFR (Non-African American) 9.4 ml/min; Potassium 4.1 mmol/L (3.5-5.1)
--- NOTE | 2023-10-06 12:22 | Discharge Summary ---
Date of Service October 06, 2023 Admission HPI Per Admitting Provider Michael is a 83-year-old male with past medical history of CKD, polycystic kidney disease, hypertension, vitamin D deficiency, and anemia without history of GI bleeding who resents to the ER with polyuria/nocturia, fever/chills, and weakness. Does not have leukocytosis, creatinine baseline of around 3.33.8, although more recently 4.2 is elevated at 4.77 on admission. Procalcitonin is 51. He is normotensive and is not tachycardic on admission. Chest x-ray does not show any acute abnormalities, no evidence of pneumonia and no evidence of pulmonary edema. He is recommended for admission for suspected complicated UTI Presents with 2 days of hematuria, chills, and weakness. UA foul-smelling and infected appearing. No prior history of resistant organisms on urine culture Reports since Tuesday multiple small voids, severe urgency No appetite, minimal PO intake since tuesday Endorses a morning cough, but no recent change or sputum production. Denies shortness of breath, daughters feel he is weaking and easily fatigued/sob last few days No chest pain, no chest pressure. No syncope/presyncope. Endorses a history of CAD w/ PCI with one stent done by [facility] Currently sees Dr. Jewell, Dr. Dillon, Dr. O[place] dermatology, Dr. Raymond in [place] for cardiology. Med hx: CAD with hx of PCI, denies congestive heart failure. Distant history of kidney stones. HLD. HTN. Gout last flare after starting lasix. Takes colchicine intermittently. Is no longer on allopurinol. Med Review from phone: Aspirin 81mg daily Eliquis 2.5mg BID Metoprolol 25 daily Vitamin D 50K Amlodipine 10 Terazosin 10 Lasix 40 (started one month ago. Was previously on hctz which wasn't helping) Fenofibrate 134 Lisinopril 40 Ezetimibe 40 Pravastatin 80 COQ10 Medical History: Reviewed Medications: Reviewed Surgical History: Reviewed Family history: Reviewed Allergies: Reviewed Social History: No tobacco use in 50 years. No etoh use. Code Status: DNR. Patient would not want oscitation in the setting of an arrest/CODE BLUE, but would be okay with temporary intubation for declining respiratory status/fluid overload/etc. Will list as conditional code. Principal Diagnosis Acute UTI, possibly prostatitis, CKD stage V Discharge Exam The patient is awake, alert and oriented 3, well developed and well nourished, normocephalic and atraumatic, lying in bed and in no acute distress. HEENT--PERRL, EOMI, mucous membranes and oropharynx mildly dry Neck--supple. No JVD. No bruits. Thyroid normal, trachea midline, no adenopathy. Heart--normal S1 and S2. No murmurs, rubs or gallops. Lungs--clear bilaterally, no respiratory distress, no accessory muscle use. Abdomen--normal bowel sounds and soft. Extremities--no cyanosis or clubbing. No edema. Dermatologic--normal skin turgor, normal color, no abnormal lymph nodes, no rash. Neurologic--cranial nerves II through XII grossly intact. Rheumatologic--normal range of motion. Psychiatric--normal affect. Discharge Data Allergies Allergy/AdvReac Type Severity Reaction Status Date / Time adhesive tape Allergy Unknown Verified 09/27/23 14:51 levofloxacin [From Levaquin] Allergy Unknown Rash Verified 09/27/23 14:51 Penicillins Allergy Unknown Verified 09/27/23 14:51 Consultations 09/29/23 16:23 ED Decision to Admit Stat 09/30/23 11:34 Consult Cardiology Routine 10/01/23 08:23 Consult Nephrology Routine 10/04/23 08:20 Consult Infectious Diseases Routine Ordered Studies 09/30/23 10:13 CT abd pelvis wo con Urgent Hospital Course (1) Sepsis: Resolving Source is likely the UTI, culprit organism E. coli. Urine and blood cultures growing E. coli as well Currently on IV ceftriaxone will continue while inpatient Given that the source could also be from prostatitis, infectious disease thinks that he may need 4 weeks of antibiotics Upon discharge per infectious disease, will need p.o. cefdinir 300 mg daily and if the patient starts on hemodialysis we will switch to 300 mg every 48 hours for total of 4 weeks (2) Complicated UTI (urinary tract infection): Several days of urinary symptoms prior to admission. Most likely seeded through prostate and therefore will need to follow duration of antibiotics based on symptom resolution as it relates to possible prostate symptoms With E. coli septicemia With polycystic kidney disease and no abdominal pain but given sepsis, checked CT abdomen/pelvis--> shows nephrolithiasis but not obstructing and large interpolar calculus with calyectasis on left but no hydronephrosis. PVR is acceptable prior hospitalist has discussed with urology-no intervention needed Continue antibiotics, while in hospital continue IV ceftriaxone. Upon discharge p.o. cefdinir, day dosing depends on if patient has been to go home on hemodialysis Upon discharge per infectious disease, will need p.o. cefdinir 300 mg daily and if the patient starts on hemodialysis we will switch to 300 mg every 48 hours for total of 4 weeks (3) Paroxysmal atrial fibrillation: Rate is now under better control Consult cardiology appreciated-started amiodarone gtt with rates being very well-controlled and him being totally asymptomatic from the A-fib, amiodarone stopped. Metoprolol increased to 75 mg daily. Continue to follow. Anticoagulated with Eliquis. (4) CKD (chronic kidney disease) stage 4, GFR 15-29 ml/min: DARELL on CKD4, secondary to polycystic kidney disease. AVF placed August 2023- not mature yet. Serum creatinine continues to trend up MRI abdomen 08/2023: Massively enlarged kidneys with innumerable simple and mildly complicated cysts consistent with polycystic disease. CT abdomen/pelvis here with cysts and stones in the kidneys, no hydronephrosis Continuing to hold lisinopril and colchicine (home meds) Appreciate nephro recommendations. (5) Hypertension: blood pressure is reasonable given the situation (6) Anemia: Hgb mildly low and stable at 10.0, normocytic Fe studies show transferrin sat low at 6%, normal ferritin but could be elevated as acut ephase reactant B12, folate normal Needs iron but hold off in setting of bacteremia continue to follow CBC (7) CAD (coronary artery disease): Troponin elevation at 232 and then down to 209 on repeat ECG without ischemic changes, no chest pain, likely myocardial demand ischemia secondary to sepsis CAD, PCI in [place] more than 10 years ago asymptomatic from a coronary standpoint. Continue to follow (8) Polycystic kidney disease, autosomal dominant: as noted (9) Nephrolithiasis: As noted above, follow-up with urology as an outpatient, no acute intervention needed (10) KARISSA (obstructive sleep apnea): continue cpap qhs Plan Discharge home Diet: Heart healthy, low potassium Disposition: Continued stay on PCU group and all of his comorbidities and changes in A-fib rate controlling medications CODE STATUS: DNR. Would not want remeasure/resuscitation in a cardiac arrest, is okay with intubation temporarily for declining respiratory status listed as conditional code for clarity and due to family concern DNR/DNI could be misinterpreted outside of code setting DVT prophylaxis: Anticoagulated with Eliquis Total Time Total Time Spent Total Time Spent (In Minutes): 35 Discharge Plan Discharge Items Patient Disposition: Home - Self-Care Reason For Visit: COMPLICATED UTI Discharge Diagnosis: complicated UTI, possible Prostatitis Activity: Resume your previous activity Non-emergency contact: Primary Care Provider and [employer]sho[employer] Driver Call non-emergency contact if: you have any medication questions Follow-up/Referrals: Franck Dillon, [Primary Care Provider] - Diet: Regular Addtl Attending Provider Instructions: please follow up with your matcher as soon as possible. In case you sttart Dialysis within the next 30 days, you will adjust the dose of your antibiotics (Cefdinir) from daily to every other day Pending Studies at Discharge: No Stand-Alone Forms: My [facility] [employer], Smoking Cessation Medications and DC Order Prescriptions: New metoprolol succinate 25 mg Tablet Extended Release 24 Hr 75 mg PO DAILY 30 Days Qty: 90 0RF cefdinir 300 mg capsule 300 mg PO DAILY 30 Days Qty: 30 0RF Continued ergocalciferol (vitamin D2) 1,250 mcg (50,000 unit) capsule 50,000 unit PO .COMPLEX Qty: 20 2RF Rx Instructions: 50,000 units PO every other week; aspirin 81 mg tablet 81 mg PO DAILY multivitamin [Daily Multi-Vitamin] tablet 1 tab PO DAILY fenofibrate micronized 134 mg capsule 134 mg PO DAILY ezetimibe 10 mg tablet 10 mg PO DAILY amlodipine 10 mg tablet 10 mg PO DAILY terazosin 10 mg capsule 10 mg PO DAILY coenzyme Q10 [Co Q-10] 100 mg capsule 100 mg PO DAILY pravastatin 20 mg tablet 20 mg PO DAILY Eliquis 2.5 mg tablet 2.5 mg PO BID Qty: 60 2RF allopurinol 100 mg tablet 100 mg PO Q4D colchicine 0.6 mg tablet 0.6 mg PO BID Discontinued lisinopril 40 mg tablet 40 mg PO DAILY metoprolol tartrate 25 mg tablet 25 mg PO DAILY Qty: 30 2RF furosemide 40 mg tablet 40 mg PO DAILY Qty: 90 3RF Discharge Orders: Discharge Order (Routine); Ordered 10/06/23 Ordered By: Laura Stanley Admission Data Admit Date/Time: 09/29/23 17:14 Attending Provider: Laura Stanley Admit Provider: Willy Ricahrd Primary Care Provider: Franck Dillon Other Providers: Willy Richard; Mehdi Kc; Hung Jewell; Colleen Boswell; Brandy Dewey; Alexandru Alcantar; Modesta Harrison; Jessica Salinas; Logan Marinelli; Cristal Reaves; Juliana Alvarez Coding Level of Care Code 24253 INP/OBS DISCH >30 MIN Diagnoses Sepsis A41.9 Complicated UTI (urinary tract infection) N39.0 Paroxysmal atrial fibrillation I48.0 CKD (chronic kidney disease) stage 4, GFR 15-29 ml/min N18.4 Hypertension I10 Anemia D64.9 CAD (coronary artery disease) I25.10 Polycystic kidney disease, autosomal dominant Q61.2 Nephrolithiasis N20.0 KARISSA (obstructive sleep apnea) G47.33 Time Spent (min) 35
--- NOTE | 2023-10-06 12:32 | Nephrology Progress Note ---
Date of Service October 06, 2023 Assessment & Plan (1) DARELL (acute kidney injury): Plan: Creatinine plateaued. Azotemic but denies significant uremic symptoms. Volume status acceptable. There is no emergent indication for DIE STAMPER at this time. Michael is aware that prognosis for renal recovery is poor. Potential future indications for starting HD were reviewed. Hepatitis B profile was ordered this AM. Electrolytes remains normal. Volume status acceptable. Michael denies uremic symptoms. He will be discharged today. Blood work will be repeated on Tuesday and follow up arranged with me in the [facility] nephrology clinic in [place] on Tuesday. DARELL attributed to sepsis and hemodynamic instability. Lisinopril has been held. The medication should not be restarted at discharge. (2) CKD (chronic kidney disease) stage 5, GFR less than 15 ml/min: Plan: Baseline creatinine 3.7-4.0 mg/dL. CKD attributed to PKD. AVF placed 09/10 is not mature for use. Medications are appropriately dosed for kidney function. (3) Polycystic kidney disease, autosomal dominant: (4) Complicated UTI (urinary tract infection): Plan: ID consultation completed. Discharge on cefdinir. (5) Anemia: Plan: Hgb stable. PATEL therapy not indicated at this time. Iron deficiency noted. Venofer 200 mg IV x 1 dose provided yesterday. Additional IV therapy can be coordinated as an outpatient. (6) Paroxysmal atrial fibrillation: Plan: Rate controlled. Denies symptoms. Admission and Anticipated Discharge Date Admission Date: September 29, 2023 Subjective No acute events overnight. Michael feels reasonably well this AM. Some dry cough persists. He is breathing comfortably and denies fluid retention or edema. Overall, he feels reasonably well. He would like to go home today. I reviewed the discharge plan and need for close outpatient follow up. Review of Systems Review of Systems: All systems reviewed & are unremarkable except as noted in HPI & below Physical Exam Constitutional: well developed and + obese; no acute distress Eyes: + anicteric sclerae; no corneal abnormal ity ENMT: Mouth: no oral mucosal abnormality and oral mucous membranes not dry Neck: normal visual inspection and trachea midline Respiratory: normal respiratory effort and + cough Auscultation: lungs clear to auscultation bilaterally Cardiovascular: Rate/Rhythm: + irregularly irregular Heart Sounds: normal S1 and normal S2 Extremities: + edema and + AV fistula Musculoskeletal: Extremities: no cyanosis and no clubbing Skin: normal turgor; no lesions Neurologic: Motor/Sensory: no tremor and no asterixis Psychiatric: Orientation: alert and oriented x 3 Results & Data Vital Signs (Past 12 Hours) Vital Signs Temp Pulse Pulse Resp BP Pulse Ox O2 Del Method 10/06/23 11:33 36.3 C L 72 18 109/63 97 Room Air 10/06/23 08:14 Room Air 10/06/23 08:00 81 10/06/23 07:34 36.5 C 82 19 123/80 95 Room Air 10/06/23 02:48 36.4 C L 79 19 109/72 97 CPAP Laboratory Results Laboratory Results - last 24 hr 10/05/23 10/06/23 10/06/23 16:29 06:11 10:13 Sodium 132 L Potassium 4.1 Chloride 100 Carbon Dioxide 20 L Anion Gap 12 H BUN 106 H Creatinine 5.29 H* Est Cr Clr Drug Dosing 15.5 Est GFR ( Amer) 10.9 Est GFR (Non-Af Amer) 9.4 BUN/Creatinine Ratio 20.0 Glucose 87 POC Glucose 128 H Calcium 8.2 L Hep Bs Antigen Pending Hep Bs Ag Confirmation Pending Hep Bs Antibody, Quant Pending Hep B Core IgM Ab Pending PG Care Time/CCT Total # of Minutes Spent Total Time Spent with Patient: Total time spent is greater than 50% in coordination of care (as documented) at patient's floor/unit and/or counseling patient: Coding Level of Care Code 73773 SUB INP/OBS CARE 3/50MIN Diagnoses DARELL (acute kidney injury) N17.9 CKD (chronic kidney disease) stage 5, GFR less than 15 ml/min N18.5 Polycystic kidney disease, autosomal dominant Q61.2 Complicated UTI (urinary tract infection) N39.0 Anemia D64.9 Paroxysmal atrial fibrillation I48.0
[2023-10-08 11:17] LABS: HBSAG NON-REACTIVE (NON-REACTIVE); Hepatitis B Core Antibody IgM NON-REACTIVE (NON-REACTIVE); Hepatitis B Surface Ab, Quant 24 mIU/mL (> OR = 10)
== END 2023-10-06 13:05 | disposition home or self-care (01) | DRG 872 ==
LOC: ED 14:19 → 2N 17:14 → SUATTDRO 17:14 → 2N 19:51 → 2S 10-01 08:36